=== PATIENT | male | born 1960 | race Caucasian/White ===

== ENCOUNTER 2017-10-05 07:21 | Outpatient (CLI) | payer BC ==
[~2017-10-05] VITALS: Ht 198.1 cm; Wt 140.9 kg
[2017-10-05] MEDS ORDERED: VASOTEC10 MG PO (08:09)
[2017-10-05] MEDS ORDERED: LEVOTHYROXINE200 MCG PO (08:09)
[2017-10-05] MEDS ORDERED: MAXZIDE 75/501 TAB PO (08:10)
[2017-10-05] MEDS ORDERED: VITAMIN D250000 UNIT PO (08:10)
[2017-10-05] MEDS ORDERED: FENOFIBRATE160 MG PO (08:11)
[2017-10-05] MEDS ORDERED: ZOLOFT100 MG PO (08:11)
[2017-10-05] MEDS ORDERED: NOVOLOG INJ FLE (08:11)
[2017-10-05] MEDS ORDERED: TOPROL XL50 MG PO (08:11)
[2017-10-05] MEDS ORDERED: TRESIBA FLEX INJ 200 (08:12)
[2017-10-05] MEDS ORDERED: CARDIZEM CD240 MG PO (08:12)
[2017-10-05] MEDS ORDERED: BAYER CHEWABLE81 MG PO (08:13)
[2017-10-05] MEDS ORDERED: ZANTAC150 MG PO (08:13)
[2017-10-05 08:14] VITALS: BP 150/89; BMI 35.7
[2017-10-05 08:38] LABS: BASOPHILS 0.3 % (0-2); EOSINOPHILS 1.4 % (0-7); HEMATOCRIT 37.9 % (42.0-54.0); HEMOGLOBIN 12.7 g/dL (13.5-17.5); IMMATURE GRANULOCYTES 0.3 % (0-5); LYMPHOCYTES 18.3 % (15-50); MCH 30.4 pg (26.0-34.0); MCHC 33.5 g/dL (31.0-37.0); MCV 90.7 fL (80.0-100.0); MEAN PLATELET VOLUME 11.2 fL (7.4-10.4); MONOCYTES 6.2 % (2-11); NEUTROPHILS 73.5 % (40-80); PLATELET COUNT 357 10x3/uL (130-400); RBC 4.18 10x6/uL (4.20-6.10); RDW 13.1 % (11.5-14.5); WBC 11.4 10x3/uL (4.8-10.8)
[2017-10-05 08:46] LABS: APTT 29.5 SECONDS (22.8-39.4); INR 1.15 (0.85-1.17); PROTIME 14.3 SECONDS (11.6-15.0)
[2017-10-05 09:00] LABS: ANION GAP 15.1 mmol/L (8-16); CALCIUM 9.2 mg/dL (8.5-10.1); CARBON DIOXIDE 25.6 mmol/L (21.0-32.0); CREATININE - SERUM 3.7 mg/dL (0.6-1.3); POTASSIUM - SERUM 3.7 mmol/L (3.5-5.1)
[2017-10-05 14:31] VITALS: BP 154/78; Ht 198.1 cm; Wt 140.9 kg
[2017-10-06 00:15] LABS: HEMATOCRIT 31.6 % (42.0-54.0); HEMOGLOBIN 10.9 g/dL (13.5-17.5); LYMPHOCYTES 21.9 % (15-50); MCH 29.9 pg (26.0-34.0); MCHC 34.5 g/dL (31.0-37.0); MEAN PLATELET VOLUME 10.1 fL (7.4-10.4); NEUTROPHILS 69.4 % (40-80); RBC 3.64 10x6/uL (4.20-6.10); RDW 12.8 % (11.5-14.5); WBC 9.3 10x3/uL (4.8-10.8)
[2017-10-06 00:16] LABS: MCV 86.8 fL (80.0-100.0); PLATELET COUNT 260 10x3/uL (130-400)
[2017-10-06 04:31] VITALS: BP 151/77
[2017-10-06 06:50] LABS: BASOPHILS 0.3 % (0-2); EOSINOPHILS 1.4 % (0-7); HEMATOCRIT 33.9 % (42.0-54.0); HEMOGLOBIN 11.5 g/dL (13.5-17.5); IMMATURE GRANULOCYTES 0.6 % (0-5); LYMPHOCYTES 20.6 % (15-50); MCH 30.4 pg (26.0-34.0); MCHC 33.9 g/dL (31.0-37.0); MCV 89.7 fL (80.0-100.0); MEAN PLATELET VOLUME 10.6 fL (7.4-10.4); MONOCYTES 8.7 % (2-11); NEUTROPHILS 68.4 % (40-80); PLATELET COUNT 270 10x3/uL (130-400); RBC 3.78 10x6/uL (4.20-6.10); RDW 13.1 % (11.5-14.5); WBC 8.6 10x3/uL (4.8-10.8)
[2017-10-06 07:03] LABS: CALCIUM 8.6 mg/dL (8.5-10.1); CARBON DIOXIDE 25.9 mmol/L (21.0-32.0); CREATININE - SERUM 3.7 mg/dL (0.6-1.3); POTASSIUM - SERUM 3.9 mmol/L (3.5-5.1)
[2017-10-06 07:56] VITALS: BP 159/84
[2017-10-06 12:02] VITALS: BP 165/90
[2017-10-06 12:13] LABS: BASOPHILS 0.2 % (0-2); EOSINOPHILS 1.3 % (0-7); HEMATOCRIT 34.2 % (42.0-54.0); HEMOGLOBIN 11.5 g/dL (13.5-17.5); IMMATURE GRANULOCYTES 0.5 % (0-5); LYMPHOCYTES 18.4 % (15-50); MCH 30.2 pg (26.0-34.0); MCHC 33.6 g/dL (31.0-37.0); MCV 89.8 fL (80.0-100.0); MEAN PLATELET VOLUME 10.6 fL (7.4-10.4); MONOCYTES 6.3 % (2-11); NEUTROPHILS 73.3 % (40-80); PLATELET COUNT 285 10x3/uL (130-400); RBC 3.81 10x6/uL (4.20-6.10); RDW 13.2 % (11.5-14.5); WBC 8.5 10x3/uL (4.8-10.8)
== END 2017-10-06 14:40 | disposition home or self-care (01) ==
LOC: D.OPS 07:21 → D.SP 10:00 → D.M2 14:03 → D.OPS 10-06 14:40
PROVIDERS: General Practice; Internal Medicine Nephrology
DX: E11.22 Type 2 diabetes mellitus with diabetic chronic kidney disease (principal); N18.3 Chronic kidney disease, stage 3 (moderate); E11.21 Type 2 diabetes mellitus with diabetic nephropathy; Q61.5 Medullary cystic kidney; Z01.812 Encounter for preprocedural laboratory examination

== ENCOUNTER 2018-02-02 10:13 | Inpatient (IN) | payer BC ==
[~2018-02-02] VITALS: Ht 198.1 cm; Wt 138.1 kg
--- NOTE | ~2018-02-02 | OP ---
PATIENT NAME: RYANN DUVALL MEDICAL RECORD: [id number] :62 LOCATION:D.M2 D.2111 ADMISSION DATE:02/02/18 SURGEON: HANDY PAZ MD DATE OF OPERATION: 02/06/2018 PREOPERATIVE DIAGNOSES: 1. Chronic kidney disease. 2. Diabetes mellitus. 3. Hypertension. 4. Anemia of chronic kidney disease. POSTOPERATIVE DIAGNOSES: 1. Chronic kidney disease. 2. Diabetes mellitus. 3. Hypertension. 4. Anemia of chronic kidney disease. PROCEDURE: 1. Laparoscopic peritoneal dialysis catheter placement. 2. Left Oj AV fistula placement. SURGEON: Handy Paz MD REPORT OF PROCEDURE: The patient's abdomen and left upper extremity were prepped and draped in sterile fashion. A Veress needle was inserted in the left upper quadrant and the abdomen was insufflated. A 5-mm Visiport trocar was then inserted in the left lateral abdomen. We could see the Veress needle and there was no sign of any injury to bowel or surrounding structures. Another 5-mm trocar was placed in the midline just above the umbilicus. The final 5-mm trocar was placed in the right lower quadrant. This extended from the skin towards the midline of the abdomen. We ran a grasper between the two lateral trocars until the tip end of the catheter was coming out through the skin in the right lower quadrant. The trocar was then removed and the pigtail end to the peritoneal dialysis catheter was grasped and pulled through the skin and placed down into the pelvis. Care was taken to make sure that the 2 subcutaneous sheaths were in good position. Once they were there, we irrigated out through the peritoneal dialysis catheter and it aspirated and flowed easily. We then sutured this into place with a 2-0 Prolene. The ports and insufflation were then removed. The subcutaneous tissues were closed with subcutaneous 5-0 Monocryl and dressed appropriately. We then approached the patient's left wrist. Using ultrasound guidance, we were able to map out the patient's left distal cephalic vein. It was widely open and patent. The patient had a good palpable pulse. A longitudinal incision was made overlying the radial artery. We dissected down around the radial artery and placed vessel loops around it proximally and distally. The patient's cephalic vein was then dissected free and once this was dissected free, it was transected distally. The patient was given 5000 units of heparin IV. The distal end of the cephalic vein was then tied off with a 3-0 silk tie. The cephalic vein was irrigated out with heparinized saline. We then made an arteriotomy on the radial artery and flushed proximally and distally. An end-to-side anastomosis was then performed using 7-0 Prolene. At the conclusion of this, there was a good palpable flow through the vessels with a good thrill. There was some leakage from the artery, which was treated with a single interrupted 7-0 Prolene. We inspected the vein one last time with ultrasound guidance and could see there were 2 branches that were coming in the forearm. Longitudinal incisions were made overlying these 2 OPERATIVE REPORT [id number] RYANN DUVALL branches and these were tied off after inlet using 3-0 silks. At this point, we irrigated out all the wounds and assured there was no sign of any active bleeding. Again at this point, we could feel a good palpable thrill present. The wounds were then closed with running subcutaneous 5-0 Monocryl and dressed appropriately. COMPLICATIONS: None. CONDITION: Stable. ANESTHESIA: General endotracheal. BLOOD LOSS: 50 mL. TRANSINT:[id number] Voice Confirmation ID: [id number] DOCUMENT ID: [id number] HANDY PAZ MD at 1052 CC: [id number] DICTATION DATE: 02/06/18 1415 DISTRICT GAUGER: 02/06/18 1436 DIS IN 02/07/18 [address] [place] [address]
[~2018-02-02 10:13] MED LIST: BAYER CHEWABLE81 MG PO; CARDIZEM CD240 MG PO; FENOFIBRATE160 MG PO; LEVOTHYROXINE200 MCG PO; MAXZIDE 75/501 TAB PO; NOVOLOG INJ FLE; TOPROL XL50 MG PO; TRESIBA FLEX INJ 200; VASOTEC10 MG PO; VITAMIN D250000 UNIT PO; ZANTAC150 MG PO; ZOLOFT100 MG PO
[2018-02-02 12:20] VITALS: BP 178/98; BMI 36.7
[2018-02-02 12:30] VITALS: BP 178/98
[2018-02-02] MEDS ORDERED: TRESIBA FL100 UNIT/1 SC (12:47)
[2018-02-02] MEDS ORDERED: NOVOLOG MIX 70/10 ML SQ (12:49)
[2018-02-02] MEDS ORDERED: NOVOLOG100 U/M1 SC (12:51)
[2018-02-02 14:59] LABS: CKMB 1.4 U/L (0.0-3.6); CREATINE KINASE 156 UL (21-232)
[2018-02-02 19:34] LABS: CKMB 1.6 U/L (0.0-3.6); CREATINE KINASE 172 UL (21-232); TROPONIN-I 0.032 ng/mL (0.000-0.060)
[2018-02-02 20:00] VITALS: BP 185/96
[2018-02-03 01:00] VITALS: BP 155/75
[2018-02-03 01:52] LABS: CKMB 1.2 U/L (0.0-3.6); CREATINE KINASE 157 UL (21-232)
[2018-02-03 05:11] VITALS: BP 155/76
[2018-02-03 06:11] LABS: BASOPHILS 0.3 % (0-2); EOSINOPHILS 2.1 % (0-7); HEMATOCRIT 32.7 % (42.0-54.0); HEMOGLOBIN 10.8 g/dL (13.5-17.5); IMMATURE GRANULOCYTES 0.3 % (0-5); LYMPHOCYTES 21.9 % (15-50); MCH 29.3 pg (26.0-34.0); MCV 88.9 fL (80.0-100.0); MEAN PLATELET VOLUME 10.3 fL (7.4-10.4); NEUTROPHILS 66.4 % (40-80); PLATELET COUNT 322 10x3/uL (130-400); RBC 3.68 10x6/uL (4.20-6.10); RDW 13.8 % (11.5-14.5); WBC 9.8 10x3/uL (4.8-10.8)
[2018-02-03 06:39] LABS: ANION GAP 15.2 mmol/L (8-16); CALCIUM 8.4 mg/dL (8.5-10.1); CREATININE - SERUM 6.7 mg/dL (0.6-1.3); POTASSIUM - SERUM 3.2 mmol/L (3.5-5.1)
[2018-02-03 08:16] VITALS: BP 155/87
[2018-02-03 11:46] LABS: HEPATITIS C ANTIBODY <0.1 (0.0-0.9)
[2018-02-03 11:56] VITALS: BP 161/86
[2018-02-03 12:38] VITALS: Ht 198.1 cm; Wt 138.1 kg
[2018-02-03 15:48] VITALS: BP 157/78
[2018-02-03 20:00] VITALS: BP 164/87
[2018-02-04 01:00] VITALS: BP 153/75
[2018-02-04 04:30] VITALS: BP 142/71
[2018-02-04 05:07] LABS: BASOPHILS 0.4 % (0-2); EOSINOPHILS 2.9 % (0-7); HEMATOCRIT 29.1 % (42.0-54.0); HEMOGLOBIN 9.6 g/dL (13.5-17.5); IMMATURE GRANULOCYTES 0.1 % (0-5); LYMPHOCYTES 28.3 % (15-50); MCH 29.6 pg (26.0-34.0); MCV 89.8 fL (80.0-100.0); MEAN PLATELET VOLUME 10.2 fL (7.4-10.4); NEUTROPHILS 60.3 % (40-80); PLATELET COUNT 261 10x3/uL (130-400); RBC 3.24 10x6/uL (4.20-6.10); RDW 13.8 % (11.5-14.5); WBC 7.7 10x3/uL (4.8-10.8)
[2018-02-04 05:09] LABS: ANION GAP 17.4 mmol/L (8-16); CALCIUM 7.8 mg/dL (8.5-10.1); CARBON DIOXIDE 21.1 mmol/L (21.0-32.0); CREATININE - SERUM 6.9 mg/dL (0.6-1.3); POTASSIUM - SERUM 3.5 mmol/L (3.5-5.1)
[2018-02-04 10:05] VITALS: BP 156/89
[2018-02-04 12:22] VITALS: BP 163/86
[2018-02-04 16:58] VITALS: BP 155/87
[2018-02-04 21:00] VITALS: BP 144/78
[2018-02-05 02:30] VITALS: BP 157/86
[2018-02-05 05:00] VITALS: BP 146/78
[2018-02-05 05:18] LABS: BASOPHILS 0.5 % (0-2); EOSINOPHILS 3.8 % (0-7); HEMOGLOBIN 9.4 g/dL (13.5-17.5); IMMATURE GRANULOCYTES 0.5 % (0-5); LYMPHOCYTES 27.1 % (15-50); MCH 29.3 pg (26.0-34.0); MCHC 32.4 g/dL (31.0-37.0); MCV 90.3 fL (80.0-100.0); MEAN PLATELET VOLUME 10.4 fL (7.4-10.4); MONOCYTES 9.7 % (2-11); NEUTROPHILS 58.4 % (40-80); PLATELET COUNT 261 10x3/uL (130-400); RBC 3.21 10x6/uL (4.20-6.10); RDW 13.6 % (11.5-14.5); WBC 8.8 10x3/uL (4.8-10.8)
[2018-02-05 05:21] LABS: ANION GAP 14.7 mmol/L (8-16); CALCIUM 7.5 mg/dL (8.5-10.1); CARBON DIOXIDE 24.8 mmol/L (21.0-32.0); CREATININE - SERUM 7.1 mg/dL (0.6-1.3); POTASSIUM - SERUM 3.5 mmol/L (3.5-5.1)
[2018-02-05 05:33] LABS: % SATURATION 17 % (15-55); IRON 34 ug/dl (35-150); TOTAL IRON BIND CAPACITY 199 ug/dl (260-445); UNSAT IRON BIND CAPACITY 165 ug/dl (150-375)
[2018-02-05 09:07] VITALS: BP 153/87
[2018-02-05 12:51] VITALS: BP 157/89
[2018-02-05 16:41] VITALS: BP 148/81
[2018-02-05 20:00] VITALS: BP 144/79
[2018-02-06] VITALS (12 sets, daily range): BP systolic 132–164; BP diastolic 69–94
[2018-02-06 04:39] LABS: BASOPHILS 0.4 % (0-2); EOSINOPHILS 2.3 % (0-7); HEMATOCRIT 29.3 % (42.0-54.0); HEMOGLOBIN 9.6 g/dL (13.5-17.5); IMMATURE GRANULOCYTES 0.1 % (0-5); LYMPHOCYTES 22.1 % (15-50); MCH 29.4 pg (26.0-34.0); MCHC 32.8 g/dL (31.0-37.0); MCV 89.6 fL (80.0-100.0); MEAN PLATELET VOLUME 10.1 fL (7.4-10.4); NEUTROPHILS 67.1 % (40-80); PLATELET COUNT 253 10x3/uL (130-400); RBC 3.27 10x6/uL (4.20-6.10); RDW 13.8 % (11.5-14.5); WBC 9.4 10x3/uL (4.8-10.8)
[2018-02-06 04:41] LABS: ANION GAP 16.7 mmol/L (8-16); CALCIUM 7.4 mg/dL (8.5-10.1); CARBON DIOXIDE 23.1 mmol/L (21.0-32.0); CREATININE - SERUM 7.2 mg/dL (0.6-1.3); POTASSIUM - SERUM 3.8 mmol/L (3.5-5.1)
[2018-02-07] VITALS: BP 168/95
[2018-02-07 04:00] VITALS: BP 141/76
[2018-02-07 06:08] LABS: BASOPHILS 0.3 % (0-2); EOSINOPHILS 1.4 % (0-7); HEMATOCRIT 28.5 % (42.0-54.0); HEMOGLOBIN 9.3 g/dL (13.5-17.5); IMMATURE GRANULOCYTES 0.3 % (0-5); LYMPHOCYTES 17.5 % (15-50); MCH 29.3 pg (26.0-34.0); MCHC 32.6 g/dL (31.0-37.0); MCV 89.9 fL (80.0-100.0); MEAN PLATELET VOLUME 10.2 fL (7.4-10.4); MONOCYTES 8.4 % (2-11); NEUTROPHILS 72.1 % (40-80); PLATELET COUNT 260 10x3/uL (130-400); RBC 3.17 10x6/uL (4.20-6.10); RDW 13.6 % (11.5-14.5); WBC 8.7 10x3/uL (4.8-10.8)
[2018-02-07 06:49] LABS: ANION GAP 18.8 mmol/L (8-16); CALCIUM 7.7 mg/dL (8.5-10.1); CREATININE - SERUM 7.2 mg/dL (0.6-1.3); POTASSIUM - SERUM 3.8 mmol/L (3.5-5.1)
[2018-02-07] MEDS ORDERED: LASIX20 MG PO (07:34)
[2018-02-07 07:43] VITALS: BP 121/67
== END 2018-02-07 12:09 | disposition home or self-care (01) | DRG 264 ==
LOC: D.M2 10:13 → D.ICU 11:09 → D.M2 11:09
PROVIDERS: Internal Medicine; Internal Medicine Nephrology; Surgery
PROC: 0WHG43Z Insertion of Infusion Device into Peritoneal Cavity, Percutaneous Endoscopic Approach (ICD-10-PCS; principal; 2018-02-06 12:00)
PROC: 031C0ZF Bypass Left Radial Artery to Lower Arm Vein, Open Approach (ICD-10-PCS; 2018-02-06 12:00)
DX: I13.2 Hypertensive heart and chronic kidney disease with heart failure and with stage 5 chronic kidney disease, or end stage renal disease (principal); N18.5 Chronic kidney disease, stage 5; N17.9 Acute kidney failure, unspecified; E11.22 Type 2 diabetes mellitus with diabetic chronic kidney disease; I50.9 Heart failure, unspecified; Z87.891 Personal history of nicotine dependence; E66.01 Morbid (severe) obesity due to excess calories; Z68.36 Body mass index [BMI] 36.0-36.9, adult; E11.21 Type 2 diabetes mellitus with diabetic nephropathy; D63.1 Anemia in chronic kidney disease

== ENCOUNTER 2018-12-07 22:05 | Inpatient (IN) | payer BC, MEDICAID ==
[~2018-12-07] VITALS: Ht 195.6 cm; Wt 119.5 kg
--- NOTE | ~2018-12-07 | HEMODYNAMI ---
PATIENT:RYANN DUVALL MEDICAL RECORD: [id number] : 62 [facility] AD[facility] DATE: 12/07/18 Generatedon:12/12/201816:59 Patient name: RYANN DUVALL Patient #: [id number] SSN: D OB: 1960 Date of study: 12/12/2018 Page: Of Hemodynamic Procedure Report Patient Data Patient Demographics Procedure consent was obtained First Name: RYANN Gender: Male Last Name: ELOINA : 1960 Patient #: [id number] Age: 58 year(s) Race: Unknown Additional ID: [id number] Contact details Address: [facility] State: [place] City: [place] Zip code: [address] Past Medical History Allergies: No known allergies Admission Admission Data Admission Date: 12/07/2018 Admission Time: 22:49 Room #: [facility] Height (in.): 77 BSA: 2.63 (m2) Height (cm.): 195.58 BMI: 34.74 (kg/m2) Weight (lbs.): 293 Weight (kg.): 132.9 Procedure Procedure Types Cath Procedure Peripheral Cath Diagnostic Procedure Wind Turbine Mechanical Engineer Peripheral Procedures Abd/Extremity Extremities Right Lower Ext Arterio Procedure Description Procedure Date Procedure Date: 12/12/2018 Procedure Start Time: 16:11 Procedure Staff Name Stephy Majano MD Performing Physician Sonya Fontenot RT Plane Tender Wilda Lemus RN Nurse Syed Granados RT Scrub Mark Pennington MD Additional personnel Procedure Data Cath Procedure Fluoroscopy Diagnostic fluoroscopy Total fluoroscopy Time: 9.3 time: 9.3 min min Diagnostic fluoroscopy Total fluoroscopy dose: 382 dose: 382 mGy mGy Contrast Material Contrast Material Type Amount (ml) Isovue 300 65 Entry Location Entry Primary Successful Side Size Upsize Upsize Entry Closure Succes sful Closure Location (Fr) 1 (Fr) 2 (Fr) Remarks Device Remarks Femoral Left Exoseal artery Diagnostic catheters Device Type Used For End Catheter Placement [employer] Cobra 2 4Fr 65CM catheter ([id number]) Procedure Medications Medication Administration Route Dosage Heparin Flush Bag added to field 3 bags (1000units/500ml NS) Lidocaine 1% added to field 20 Hemodynamics Rest BSA: 2.63 (m2) O2 Consumption: Estimated: 357.68 (ml/min) O2 Consumption indexed : Estimated:136 (ml/min/m) Pre Cath Intra NCS Post Cath Medications Time Medication Route Dose Verified Delivered Reason Notes Effe ctiveness by by 15:37:30 Heparin Flush added 3 M J Long M J Long used for Bag to bags MD DELACRUZ procedure (1000units/500ml field NS) 15:37:41 Lidocaine 1% added 20ml M J Long M J Long for local to vial MD DELACRUZ anesthetic field Procedure Log Time Note 9:04:12 Patient Height : 77 inches 9:04:18 Patient Weight : 293 lbs 14:43:19 Use device set IR Diagnostic 14:44:33 DOC .035 wire (Y55755) opened to sterile field. 14:44:34 Micropuncture VSI 4FR kit opened to sterile field. 14:44:35 SHEATH 5FR [place] (TQB003) opened to sterile field. 14:44:36 TUBING Contrast Injection High Pressure (SXH176D) opened to sterile field. 14:44:37 Tegaderm 4 x 4 (1626W) opened to sterile field. 14:44:38 Sterile Angiographic Pack opened to sterile field. 14:44:39 Bag Decanter () opened to sterile field. 14:44:40 ACIST Manifold (22606) opened to sterile field. 14:44:41 ACIST Hand Control (16960) opened to sterile field. 14:44:42 ACIST Syringe (94092) opened to sterile field. 14:44:52 - 15:06:16 Time tracking: Regular hours (M-F 7:00 - 5:00) 15:06:25 Plan of Care:Hemodynamics will remain stable., Cardiac rhythm will remain stable., Comfort level will be maintained., Respiratory function will remain adequate., Patient/ family verbilizes understanding of procedure., Procedure tolerated without complication., Recovers from procedure without complications.. 15:06:34 Patient received from ICU to IR Alert and oriented. Tansferred to table in Supine position. 15:06:49 Signed procedure consent form obtained from patient. 15:06:54 Correct patient and procedure confirmed by team. 15:06:55 Warm blankets applied, and isadora hugger turned on for patient comfort. 15:07:03 H&P Date Dictated: 12/12/2018 Within 30 days and on chart.. 15:07:06 Pre-procedure instructions explained to patient. 15:07:07 Pre-op teaching completed and patient verbalized understanding. 15:07:10 Family in waiting room. 15:07:13 Patient NPO since Midnight. 15:07:23 Patient allergic to No known allergies 15:07:27 Is the patient allergic to Iodine/contrast media? No. 15:07:39 Is patient on blood thinner?Yes 15:07:56 ----Pre-sedation anethsthesia assessment.----see anesthesia notes for monitoring of patient during procedure 15:08:32 - 15:08:48 Pre procedure: right dorsailis pedis pulse Doppler 15:08:57 Pre procedure: left dorsailis pedis pulse Doppler 15:09:02 Pre procedure: right posterior tibial pulse 0-Absent 15:09:07 Pre procedure: left posterior tibial pulse 0-Absent 15:09:40 - 15:09:53 Left groin area was prepped with chlora-prep and draped in sterile fashion 15:10:13 ALEXANDER 260 wire (I07774) opened to sterile field. 15:37:30 Heparin Flush Bag (1000units/500ml NS) 3 bags added to field was administered by Kain Majano MD; used for procedure; 15:37:41 Lidocaine 1% 20ml vial added to field was administered by Kain Majano MD; for local anesthetic; 15:59:00 SHEATH 6FR Destination (RSR01) opened to sterile field. 15:59:04 Angiodynamics Omniflush 5Fr 65cm ([id number]) opened to sterile field. 16:10:18 Physician arrived 16::19 --------ALL STOP TIME OUT------ 16:10:21 Final Timeout: patient, procedure, and site verified with staff and physician. All members of the team are in agreement. 16:11:03 Procedure started. 16:11:04 Full Disclosure recording started 16:11:55 Local anesthetic to left femerol artery with Lidocaine 1% by Kain Majano MD.INITIAL ACCESS ONLY 16:11:58 Arterial access obtained using ultrasound guidance. 16:20:12 A Cook Cobra 2 4Fr 65CM catheter (J40233) was advanced over the wire an d used for . 16:22:23 GLIDE WIRE ANGLE 260cm (QQ5179) opened to sterile field. 16:22:40 CHOICE PT Extra Support 182cm wire ([id number]) opened to sterile field. 16:27:53 INFLATOR BasixTOUCH (TZ4350) opened to sterile field. 16:27:54 CXI Catheter 90cm (R02756) opened to sterile field. 16:28:08 Hawkone Medium Atherectomy System (H1-M) opened to sterile field. 16:38:54 Inflate balloon Inflation number: 1 A IN.PACT Admiral 5 x 150 x 130 DCB balloon ([id number]) was prepped and advanced across the Undefined1, then inflated. 16:47:50 SHEATH 6FR [place] (NHH659) opened to sterile field. 16:47:59 EXOSEAL 6Fr (EX600) opened to sterile field. 16:54:09 A sheath was inserted into the Left Femoral artery 16:54:09 Sheath removed intact; hemostasis achieved with Exoseal to the Left Femoral artery. 16:54:12 Procedure ended.(Physican Out) 16:54:28 Fluoroscopy time 09.30 minutes. 16:54:53 Fluoroscopy dose: 382 mGy 16:54:53 Flurop Dose total: 382 16:54:59 Contrast amount:Isovue 300 65ml. 16:57:53 Procedure and supply charges have been captured, reviewed, submitted an d are correct. 16:57:56 Post Procedure Pulses reassessed and unchanged 16:58:55 Report given to PCU. Intervention Summary Intervention Notes Time ActionType Lesion and Equipment Used Action# Pressure Duration Attributes 16:38:54 Inflate Undefined1 IN.PACT 1 0 00:00 balloon Admiral 5 x 150 x 130 DCB balloon ([id number]) Device Usage Item Name Manufacture Quantity Catalog Number Hospital Part Current Minimal Lot# / Charge Number Stock Stock Serial# Code DOC .035 wire Cook Medical 1 [id number] [id number] 188916 5 (H94130) Micropuncture VSI VASCULAR 1 7266V 121865 068727 5 VSI 4FR kit SOLUTIONS SHEATH 5FR Terumo 1 HYP604 397367 408979 633734 5 [place] (SCR235) TUBING [facility] Medical 1 MIY329F 245634 309137 852327 5 Contrast Injection High Pressure (YNA549S) Tegaderm 4 x 4 3M 1 1626W 978619 775275 876548 5 (1626W) Sterile Cardinal 1 [id number] 937406 011253 5 Angiographic Health Pack Bag Decanter Microtek 1 2001S 549800 79295 488577 5 (2001S) Medical Inc. ACIST Manifold Acist Medical 1 27899 483284 793775 020775 5 (56355) Systems Inc ACIST Hand Acist Medical 1 96187 667251 384068 141616 5 Control Systems Inc (61804) ACIST Syringe Acist Medical 1 00128 769834 428258 018261 20 (92075) Systems Inc ALEXANDER 260 wire Cook Medical 1 G49408 243308 93032 196318 5 (X94702) SHEATH 6FR Terumo 1 RSR01 305140 89142 383010 5 Destination (RSR01) Angiodynamics Angiodynamics 1 45328147 205606 511326 414352 5 Omniflush 5Fr 65cm (77086698) Cook Cobra 2 Cook Medical 1 H12307 482458 529830 5 4Fr 65CM catheter (S03761) GLIDE WIRE Terumo 1 MU2972 194396 687846 953235 5 ANGLE 260cm (LH5700) CHOICE PT [place] 1 [id number] 294773 292242 468111 5 Extra Support Scientific 182cm wire ([id number]) INFLATOR [facility] 1 BY8685 695118 539229 883662 5 BasixTOUCH (KX3430) CXI Catheter Cook Medical 1 T06049 835993 508260 051079 5 1656496 90cm (K34912) Hawkone Medium Medtronic 1 H1-M 039045 43332418 5 [id number] Atherectomy System (H1-M) IN.PACT Medtronic 1 [id number] 135105 0903501 979777 5 [id number] Admiral 5 x 150 x 130 DCB balloon ([id number]) SHEATH 6FR Terumo 1 MOZ364 264598 318497 994486 40 [place] (UHV119) EXOSEAL 6Fr Cardinal 1 EX600 347270 087178 577670 10 [id number] (EX600) Health Signature Audit [place] Stage Time Signature Unsigned Intra-Procedure 12/12/2018 Sonya Fontenot 4:59:17 PM RT(R) [id number] [place] [address]
[~2018-12-07 22:05] MED LIST changes: +LASIX20 MG PO; +NOVOLOG MIX 70/10 ML SQ; +NOVOLOG100 U/M1 SC; +TRESIBA FL100 UNIT/1 SC
[2018-12-07] MEDS ORDERED: TOPROL XL100 MG PO (22:11)
[2018-12-07] MEDS ORDERED: VASOTEC10 MG PO (22:11)
[2018-12-07] MEDS ORDERED: TRESIBA FL100 UNIT/1 SC (22:11)
[2018-12-07] MEDS ORDERED: TIAZAC/CARDIZE240 M1 PO (22:12)
[2018-12-07] MEDS ORDERED: BAYER CHEWABLE81 MG PO (22:12)
[2018-12-07] MEDS ORDERED: ZANTAC300 MG PO (22:13)
[2018-12-07] MEDS ORDERED: SYNTHROID200 MC1 PO (22:13)
[2018-12-07] MEDS ORDERED: ZOLOFT100 MG PO (22:13)
[2018-12-07] MEDS ORDERED: NOVOLOG100 UNIT/1 SC (22:13)
[2018-12-07 22:27] LABS: APPEARANCE CLOUDY (CLEAR); BACTERIA NONE SEEN /hpf (NONE SEEN); BILIRUBIN NEGATIVE (NEGATIVE); COLOR YELLOW (YELLOW); EPITHELIAL CELLS RARE /hpf (0-5); GLUCOSE 500 mg/dL (NEGATIVE); KETONE NEGATIVE (NEGATIVE); NITRITE NEGATIVE (NEGATIVE); PROTEIN 2+ mg/dL (NEGATIVE); RED CELLS - URINE NONE SEEN /hpf (0-5); SPECIFIC GRAVITY 1.015 (1.005-1.020); UROBILINOGEN NORMAL (NORMAL); WHITE CELLS - URINE 0-5 /hpf (0-5)
[2018-12-07 22:28] LABS: AMORPHOUS SEDIMENT >1+ /lpf (NONE SEEN)
[2018-12-07 22:42] LABS: HEMATOCRIT 23.7 % (42.0-54.0); HEMOGLOBIN 7.3 g/dL (13.5-17.5); MCH 27.1 pg (26.0-34.0); MCHC 30.8 g/dL (31.0-37.0); MCV 88.1 fL (80.0-100.0); MEAN PLATELET VOLUME 9.8 fL (7.4-10.4); PLATELET COUNT 318 10x3/uL (130-400); RBC 2.69 10x6/uL (4.20-6.10); RDW 17.7 % (11.5-14.5); WBC 27.7 10x3/uL (4.8-10.8)
--- NOTE | 2018-12-07 22:44 | NUR ---
CRITICAL LAB: H&H 7.3 AND 23. NOTIFIED EDP CAROLYNN VERBAL ORDER RECEIVED FOR A TYPE AND SCREEN
[2018-12-07 23:19] LABS: LYMPHOCYTES 5 % (15-50); MONOCYTES 3 % (2-11); NEUTROPHILS 92 % (40-80)
[2018-12-07 23:20] LABS: PLATELET ESTIMATE NORMAL
[2018-12-07 23:21] LABS: ALBUMIN 1.4 g/dL (3.4-5.0); ALKALINE PHOSPHATASE 83 U/L (46-116); ALT (SGPT) 7 U/L (10-68); BILIRUBIN - TOTAL 0.59 mg/dL (0.2-1.3); CALC OSMOLALITY 293 mosm/kg (275-300); CARBON DIOXIDE 20.2 mmol/L (21.0-32.0); CHLORIDE - SERUM 95 mmol/L (98-107); CKMB 1.4 U/L (0.0-3.6); CREATINE KINASE 175 UL (21-232); CREATININE - SERUM 9.5 mg/dL (0.6-1.3); GLUCOSE 247 mg/dL (74-106); POTASSIUM - SERUM 3.6 mmol/L (3.5-5.1); PROTEIN - SERUM 5.9 g/dL (6.4-8.2); SODIUM 133 mmol/L (136-145); TROPONIN-I < 0.017 ng/mL (0.000-0.060); UREA NITROGEN 69 mg/dL (7-18); eGFR NON AFRICAN AMERICAN 6 mL/min (90-120)
[2018-12-07 23:28] LABS: CALCIUM 6.5 mg/dL (8.5-10.1); PRO BNP 76439 pg/mL (0-125)
[2018-12-07 23:40] VITALS: BP 90/63
[2018-12-07 23:45] VITALS: BP 109/57
[2018-12-08] VITALS (37 sets, daily range): BP systolic 90–130; BP diastolic 55–75; Ht 195.6 cm; Wt 119.5 kg
[2018-12-08] MEDS ORDERED: BUPROPION HCL75 MG
--- NOTE | 2018-12-08 02:34 | NUR ---
PT RECEIVED TO UNIT FROM ED VIA STRETCHER WITH 2 ED STAFF AT 2345. PT TRANSFERRED TO ICU BED, PT TOLERATED WELL. PT CONNECTED TO MONITOR. RESPIRATIONS >20 ON 2LN/C. OTHER VSS. WYLIE CATHETER PRESENT WITH SCANT AMOUT OF URINE NOTED. PT WITH PERITONEAL DIALYSIS CATHETER PRESENT. DR GORAN BAKER AND HE RETURNED PAGE, INFORMED OF CONSULT REPORTED LABS AND WOUNDS. ORDERED 1 UNIT PRBC. NEW IV PLACED TO RIGHT HAND AND PRBC STARTED. LEVOPHED TITRATED DOWN TO 5MCG/MIN. IN ROOM. WOUND CONSULT ALSO ORDERED. NO OTHER ORDERS RECEIVED AT THIS TIME. ASSESSMENT COMPLETED, SEE FLOW SHEET. HISTORY AND MEDICATION REC COMPLETED BY ANOTHER NURSE. WILL CONTINUE TO OBSERVE.
--- NOTE | 2018-12-08 03:15 | NUR ---
PT CONTINUES BLOOD TRANSFUSION AND TOLERATING WELL. LEVOPHED STOPPED, SEE IV FLOW SHEET. PT RESTING WITH EYES CLOSED AND CHEST RISING. CONTINUE N/C AT 2LPM. WILL CONTINUE TO OBSERVE.
--- NOTE | 2018-12-08 06:48 | NUR ---
ZOSYN STARTED TO RIGHT WRIST. PERFERRED PHAMACY ENTERED TO MED REC. NO S/S OF DISTRESS NOTED.
[2018-12-08 07:18] LABS: HEMATOCRIT 24.6 % (42.0-54.0); HEMOGLOBIN 7.6 g/dL (13.5-17.5); MCHC 30.9 g/dL (31.0-37.0); MCV 87.5 fL (80.0-100.0); PLATELET COUNT 335 10x3/uL (130-400); RBC 2.81 10x6/uL (4.20-6.10); RDW 17.2 % (11.5-14.5); WBC 27.3 10x3/uL (4.8-10.8)
[2018-12-08 07:51] LABS: ALBUMIN 1.2 g/dL (3.4-5.0); ANION GAP 22.5 mmol/L (8-16); BILIRUBIN - TOTAL 0.78 mg/dL (0.2-1.3); CARBON DIOXIDE 19.3 mmol/L (21.0-32.0); CREATININE - SERUM 9.2 mg/dL (0.6-1.3); POTASSIUM - SERUM 3.8 mmol/L (3.5-5.1); PROTEIN - SERUM 5.7 g/dL (6.4-8.2)
[2018-12-08 08:02] LABS: CALCIUM 6.5 mg/dL (8.5-10.1)
[2018-12-08 08:37] LABS: LYMPHOCYTES 2 % (15-50); MONOCYTES 3 % (2-11); NEUTROPHILS 84 % (40-80); PLATELET ESTIMATE NORMAL
--- NOTE | 2018-12-08 12:12 | NUR ---
Pt admitted to ICU last evening with multiple wounds. Bilateral lower extremities are red and edematous and covered with crusty peeling skin, scabs and open draining odorous wounds. Pt is diabetic and has a black necrotic wound on right plantar measuring 2cm x 2cm x 2cm x 3.5cm from 12-12 oclock. Another black area is noted on plantar aspect of great toe. This wound has a foul odor and has stringy black tissue covering it. There is a macerated area? on medial aspect of right foot that is not an open wound. Right lateral tapia has numerous black scabbed areas and peeling skin. The entire area measures approximately 15cm x 10cm. Right calf has open weeping pink area measuring 5cm x 5cm. Left lower tapia has 10cm x 9cm open wound with crusty dry edges. The wound bed is pale pink. Above this is an open area measuring 4cm x 4cm. Recommendations: -Surgical consult -Keep legs clean and place pads underneath for weeping/drainage - changing as necessary Wound care will continue to follow.
--- NOTE | 2018-12-08 20:58 | MORECARE ---
CASE MANAGEMENT DISCHARGE SUMMARY PATIENT: RYANN DUVALL UNIT: [id number] ADM DATE: 12/07/18 AGE: 58 : 62 SEX: M ROOM/BED: D.2314 AUTHOR: JACY ZHANG PHYSICIAN: REFERRING PHYSICIAN: CHASITY ZIMMER MD DATE OF SERVICE: 12/08/18 Discharge Plan Patient Name: RYANN DUVALL [facility] [facility] 1960 Planned Disposition: Home Anticipated Discharge Date: Discharge Date: Expected LOS: Initial Reviewer: [email or web address] Initial Review Date: 12/08/2018 Generated: 12/08/18 9:58 pm Patient Name: RYANN DUVALL Page 63874 at 2057 All edits/amendments must be made on the electronic document DICTATION DATE: 12/08/182056 BARREL STRAIGHTENER: NOEL 12/08/182056 RPT#: [id number] DC DATE: STATUS: ADM IN [facility] [address] [place] [address] END OF REPORT
--- NOTE | 2018-12-08 21:04 | MORECARE ---
CASE MANAGEMENT DISCHARGE SUMMARY PATIENT: RYANN DUVALL UNIT: [id number] ADM DATE: 12/07/18 AGE: 58 : 62 SEX: M ROOM/BED: D.2314 AUTHOR: LEATHA,DOC PHYSICIAN: REFERRING PHYSICIAN: CHASITY ZIMMER MD DATE OF SERVICE: 12/08/18 Discharge Plan Patient Name: RYANN DUVALL [facility]:[place] : 1960 Planned Disposition: Home Anticipated Discharge Date: Discharge Date: Expected LOS: Initial Reviewer: [email or web address] Initial Review Date: 12/08/2018 Generated: 12/08/18 10:04 pm Comments DCP- Discharge Planning Updated by [email or web address]: Dorcas Maki on 12/08/18 8:[address] Patient Name: RYANN DUVALL Admission Status: ER Accout number: [id number] Admission Date: 12-07-2018 : 1960 Admission Diagnosis:SEPSIS, UNSPECIFIED ORGANISM Attending: CHASITY ZIMMER Current LOS: 1 Anticipated DC Date: Planned Disposition: Home Primary Insurance: [employer] TRUE BLUE PPO Discharge Planning Comments: CM met with patient at bedside after obtaining verbal consent. Patient states he plans on returning home after discharge with his . Patient states he will have family transport him home via private vehicle. Patient denies any discharge needs at this time. Patient may need for wound care or possibly rehab upon discharge. CM will continue to follow and assist as needed for discharge planning / needs. Lead Qa Analyst: Dorcas Maki DCPIA - Discharge Planning Initial Assessment Updated by [email or web address]: Dorcas Maki on 12/08/18 8:59 pm * Is the patient Alert and Oriented? Yes * How many steps to enter\exit or inside your home? * PCP Tejinder Bernal * Pharmacy [facility] * Preadmission Environment Home with Family * ADLs Independent * Other Equipment walker, cane, CPAP-doesn't use, PD cycler * List name and contact numbers for known caregivers / representatives who currently or will assist patient after discharge: Henri Duvall - - [phone], * Verbal permission to speak to the caregivers and representatives has been obtained from the patient. Yes * Community resources currently utilized None * Please name any agencies selected above. Home PD * Additional services required to return to the preadmission environment? No * Can the patient safely return to the preadmission environment? Yes * Has this patient been hospitalized within the prior 30 days at any hospital? No Last DP export: 12/08/18 7:58 pm Patient Name: RYANN DUVALL Page 16207 at 2104 All edits/amendments must be made on the electronic document DICTATION DATE: 12/08/182103 PORT STEWARD: NOEL 12/08/182103 RPT#: [id number] DC DATE: STATUS: ADM IN [facility] [address] [place] [address] END OF REPORT
[2018-12-09] VITALS (26 sets, daily range): BP systolic 87–114; BP diastolic 49–82
--- NOTE | 2018-12-09 07:00 | NUR ---
RECIEVED BEDSIDE REPORT ON PATIENT AND ASSUMED CARE. PATIENT ALERT AND ORIENTED X 4, VSS. HR - 123 ON CM, ST, RR - 18 NON-LABORED, ON 2 LPM VIA NC. IV INFUSING TO RIGHT WRIST 20 GA WITH NO S/S OF INFILTRATION, AMIODARONE AT 16.7 CC/HR (0.5 MG/HR). IV 20 IV TO LEFT FA, NSL. HEAD TO TOE ASSESSMENT COMPLETED.
--- NOTE | 2018-12-09 08:42 | NUR ---
PATIENT GIVEN A COMPLETE BATH AND LINEN CHANGE. TURNED AND REPOSITIONED IN BED. VSS.
--- NOTE | 2018-12-09 09:10 | NUR ---
PERTINONEAL DIAYLSIS STARTED AT 909, DRAIN COMPLETE AT 921, FILL STARTED AT 922, COMPLETE AT 926. TOTAL WEIGHT OF BAG 2200. TOLERATED WELL VSS. RESPOSITIONED IN BED. MEDS GIVEN PER DEC.
[2018-12-09 11:17] LABS: ANION GAP 19.3 mmol/L (8-16); CARBON DIOXIDE 23.8 mmol/L (21.0-32.0); CREATININE - SERUM 8.6 mg/dL (0.6-1.3); POTASSIUM - SERUM 4.1 mmol/L (3.5-5.1); VANCOMYCIN - RANDOM 18.7 ug/mL (10.0-20.0)
[2018-12-09 11:19] LABS: CALCIUM 6.6 mg/dL (8.5-10.1)
--- NOTE | 2018-12-09 11:24 | NUR ---
PATIENT REASSESSMENT COMPLETED, RESTING QUIETLY WATCHING TV. VSS. FSBS 360 GIVEN 16 UNITS OF HUMALOG PER ORDER.
--- NOTE | 2018-12-09 11:42 | NUR ---
PATIENT INCONTINENT SMALL BROWN BM, CLEANED AND REPOSTIONED IN BED. VSS.
[2018-12-09 12:15] LABS: WBC 25.7 10x3/uL (4.8-10.8)
[2018-12-09 12:16] LABS: BASOPHILS 0.1 % (0-2); EOSINOPHILS 0.1 % (0-7); HEMATOCRIT 28.5 % (42.0-54.0); HEMOGLOBIN 8.9 g/dL (13.5-17.5); IMMATURE GRANULOCYTES 0.7 % (0-5); MCH 27.1 pg (26.0-34.0); MCHC 31.2 g/dL (31.0-37.0); MCV 86.6 fL (80.0-100.0); MONOCYTES 6.3 % (2-11); NEUTROPHILS 89.8 % (40-80); PLATELET COUNT 350 10x3/uL (130-400); RBC 3.29 10x6/uL (4.20-6.10); RDW 17.7 % (11.5-14.5)
--- NOTE | 2018-12-09 12:18 | NUR ---
PATIENT REPOSITIONED IN BED, GIVEN LUNCH TRAY. VSS.
--- NOTE | 2018-12-09 13:13 | NUR ---
PERITONEAL DIALYSIS STARTED AT 1310, DRAIN COMPLETED AT 1350. FLUSH STARTED AT 1352 AND COMPLETED AT 1410. TOTAL OUT 2500.
--- NOTE | 2018-12-09 15:07 | NUR ---
REASSESSMENT COMPLETE, PATIENT TURNED AND RESPOSITIONED IN BED. VSS. MEDS GIVEN PER MAR. WILL CONTINUE TO MONITOR.
--- NOTE | 2018-12-09 16:57 | NUR ---
PATIENT RESPOSITIONED IN BED AND GIVEN DINNER TRAY. VSS. FAMILY AT BEDSIDE.
--- NOTE | 2018-12-09 18:00 | NUR ---
PERTINOEAL DIALYSIS DRAIN STARTED AT 1717 AND COMPLETE AT 1751. FLUSH STARTED AT 1751 AND COMPLTED AT 1805. WITH 1999 IN AND 1999 OUT. CLEAN PADS PLACED UNDER PATIENT AND REPOSITIONED IN BED.
[2018-12-10] VITALS (24 sets, daily range): BP systolic 85–137; BP diastolic 59–91
[2018-12-10 08:02] LABS: ANION GAP 20.3 mmol/L (8-16); CALCIUM 7.2 mg/dL (8.5-10.1); CARBON DIOXIDE 22.2 mmol/L (21.0-32.0); POTASSIUM - SERUM 3.5 mmol/L (3.5-5.1)
--- NOTE | 2018-12-10 09:41 | NUR ---
ORAL TEMP 96.0 AND AX TEMP 95.8. BEAR HUGGAR PLAced on med. BREAKFAST TRAY SERVED. FAMILY AT BS. PD SOLUTION DRAINING AT PRESENT.
--- NOTE | 2018-12-10 10:47 | NUR ---
PT INC OF STOOL. BATHED AND LINENS CHANGED.
--- NOTE | 2018-12-10 18:17 | NUR ---
1530- PD BAG #13 INDWELLING. SEE PD SHEET. ASSISTED PT WITH REPOSITIONING AND TURNING.
--- NOTE | 2018-12-10 19:00 | NUR ---
Shift assessment complete. Pt is A&O x4 and complains of being uncomfortable. Repositioned for comfort. PERRLA, 3 mm, brisk reaction to light. S1S2 audible, HR 127 sinus tach showing on monitor. RR shallow, clear lung sounds heard bilat in upper and middle lobes, diminished at the bases. NC on with 2 L/min of O2. ABD soft, PD cath seen and capped. Sommers cath intact draining a scant amount of raquel urine. Radial pulses palp. R wrist PIV infusing Amiodarone gtt @ 0.5 mg/hr. R FA PIV saline loc'd + ABX when needed. B/L lower ext +2 pitting edema. There are multiple open wounds leaking purlulent drainage. 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 There are several spots on both lower ext that are black. MD is aware and rounded on pt today. There is a foul odor as well. Doppler used, R pulse much stronger than left pulse. Complete linen change provided. Stage IV pressure noted on coccyx, no drainage at this time. Fistual L wrist, buit and thrill present. L arm reserve signs posted on door and at HOB. Contact precaution sign posted on door and followed. Tight parameters set on ICU monitors. Call light in reach, bed in lowest position. He denies any further needs.
--- NOTE | 2018-12-10 19:05 | NUR ---
HR REG [address] CHAVEZ SR ACCOUNT EXECUTIVE FOR CARDIOLOGY THROUGH ANSWERING SERVICE. REC'D CALL BACK, REC'D NEW ORDERS.
--- NOTE | 2018-12-10 19:40 | NUR ---
Recieved new orders from AM nurse per Dr. Brennan. Orders for 150 mg bolus of Amiodarone and to increase Amio gtt to 1 mg/hr after bolus for 6 hrs, then decrease gtt back to 0.5 mg/hr set rate. Bolus infusing now.
--- NOTE | 2018-12-10 20:00 | NUR ---
Bolus complete. Amio gtt increased to 1 mg/hr.
--- NOTE | 2018-12-10 21:00 | NUR ---
Family at bedside. Updated given. Repositioned for comfort. All questions answered. VSS. Will cont with POC. Call light in reach.
--- NOTE | 2018-12-10 23:00 | NUR ---
Reassessment complete. Pt stated that he was hot and uncomfortable. Fan put in room, repositioned for comfort. No changes from previous assessment. Doppler used for pedal pulses, Left pedal pulse much weaker than right. Changed pads under legs. See flowsheet for further details. VSS. Will cont with POC.
--- NOTE | 2018-12-10 23:30 | NUR ---
PD started. See PD record, retimed PD in eMAR d/t his previous PD starting to [facility] at 1930 and needs to dwell for 4 hours per orders.
[2018-12-11] VITALS (24 sets, daily range): BP systolic 88–111; BP diastolic 56–98
--- NOTE | 2018-12-11 01:00 | NUR ---
Pt resting, no signs of acute distress noted. VSS. Call light in reach.
--- NOTE | 2018-12-11 02:00 | NUR ---
Amio gtt decreased to 0.5 mg/hr per orders.
--- NOTE | 2018-12-11 03:00 | NUR ---
Reassessment complete. Airoverlay mattress placed on bed, zeroed bed, weight is reading 289# on bedscale. Pt tolerated well. D/C'd lam cath. Pt has not made any urine for several hours and he states that he is anuric. Repositioned for comfort. Pt denies any needs at this time. Will cont with POC.
--- NOTE | 2018-12-11 05:00 | NUR ---
REPOSITIONED FOR COMFORT. PT RESTING PEACEFULLY. VSS. WILL CONT WITH POC. NEXT PD IS SCHEDULED FOR 0845 PER PD RECORD. WILL NOTIFY PHARM TO RETIME.
[2018-12-11 05:25] LABS: HEMATOCRIT 28.7 % (42.0-54.0); MCH 27.4 pg (26.0-34.0); MCHC 31.4 g/dL (31.0-37.0); MCV 87.5 fL (80.0-100.0); MEAN PLATELET VOLUME 10.3 fL (7.4-10.4); PLATELET COUNT 376 10x3/uL (130-400); RBC 3.28 10x6/uL (4.20-6.10); RDW 17.8 % (11.5-14.5); WBC 20.1 10x3/uL (4.8-10.8)
[2018-12-11 05:27] LABS: ANION GAP 23.5 mmol/L (8-16); CARBON DIOXIDE 23.1 mmol/L (21.0-32.0); CREATININE - SERUM 7.5 mg/dL (0.6-1.3); POTASSIUM - SERUM 3.6 mmol/L (3.5-5.1); VANCOMYCIN - RANDOM 20.4 ug/mL (10.0-20.0)
[2018-12-11 05:31] LABS: EOSINOPHILS 1 % (0-7); LYMPHOCYTES 6 % (15-50); MONOCYTES 7 % (2-11); NEUTROPHILS 84 % (40-80); PLATELET ESTIMATE NORMAL; TOXIC GRANULATION 1+
[2018-12-11 05:33] LABS: CALCIUM 6.9 mg/dL (8.5-10.1)
--- NOTE | 2018-12-11 07:34 | NUR ---
RANDOM VANCOMYCIN LEVEL STILL >20 WILL CONTINUE TO HOLD DOSES, AND RECHECK RANDOM LEVEL IN AM
--- NOTE | 2018-12-11 08:54 | NUR ---
DR CESPEDES HERE. EKG COMPLETED AND PT TO CT FOR CTA BLE. PT MAXIME POORLY BUT WAS ABLE TO COMPLETE SCAN. PROPED UP WITH WEDGES IN CT ROOM FOR SOB. AT BS.
--- NOTE | 2018-12-11 10:11 | NUR ---
NUTRITION F/U CHART REVIEWED. PT REMAINS IN ISOLATION. REPORTS DRINKING SOME NEPRO, GOOD INTAKE BREAKFAST. WILL CONTINUE TO PROVIDE DIET, NEPRO. RD FOLLOWING
--- NOTE | 2018-12-11 11:43 | NUR ---
PD SOLUTION CHANGED TO 4.25%. PD SOLUTION INDWELLING.
--- NOTE | 2018-12-11 13:32 | NUR ---
PT INC OF STOOL. BATHED AND LINENS CHANGED. 1U PRBC STARTED ORDERED. PD SOLUTION INDWELLING.
--- NOTE | 2018-12-11 18:28 | NUR ---
PT INC OF STOOL. BATH AND LINENS CHANGED.
--- NOTE | 2018-12-11 19:35 | NUR ---
PT RECEIVED WITH EYES OPEN WATCHING TV. PERITONEAL DIALYSIS ON GOING FLUID INFUSED AND WAITING TO BE REMOVED. NO COMPLAINTS OF PAIN. HR TACHYCARDIC 100-113. OTHER VITAL SIGNS STABLE. NO NEEDS OR CONCERNS NOTED. CALL LIGHT IN REACH. WILL CONTINUE TO OBSERVE.
--- NOTE | 2018-12-11 21:55 | NUR ---
PT DIALYSIS FLUIDS DRAINED AND WEIGHED 27OO NOTED. NEW FLUID INFUSED AND DISCONNECTED FROM INFUSION SET. DRAINED FLUID YELLOW IN COLOR AND EMPTIED. PT TOLERATED WELL. CALL LIGHT IN REACH. WILL CONTINUE TO OBSERVE.
--- NOTE | 2018-12-11 23:49 | NUR ---
REASSESSMENT COMPLETE, SEE FLOW SHEET. HR SOUNDING FREQUENTLY WITH ELECTRODES CHANGED AND MOVED. PT HAVING DIFFICULTY GETTING COMFORTABLE, HOB ELEVATED NEAR 90 DEGREES PER REQUEST AT THIS TIME AND STATES COMFORT AT THIS TIME. WILL CONTINUE TO OBSERVE.
[2018-12-12] VITALS (39 sets, daily range): BP systolic 82–106; BP diastolic 58–95
--- NOTE | 2018-12-12 01:25 | NUR ---
PT WITH BM WITH PERICARE PROVIDED AND PAD CHANGE. PT ASSISTS WIT TURNING.
--- NOTE | 2018-12-12 03:05 | NUR ---
DIALYSIS FLUIDS ADMINISTERED, PT TOLERATED WELL. 2500 NOTED TO COLLECTION BAG, YELLOW IN COLOR. REASSESSMENT COMPLETED, SEE FLOW SHEET.
[2018-12-12 04:42] LABS: BASOPHILS 0 % (0-2); EOSINOPHILS 0.4 % (0-7); HEMATOCRIT 30.1 % (42.0-54.0); HEMOGLOBIN 9.5 g/dL (13.5-17.5); IMMATURE GRANULOCYTES 1.1 % (0-5); LYMPHOCYTES 3.4 % (15-50); MCH 27.6 pg (26.0-34.0); MCHC 31.6 g/dL (31.0-37.0); MCV 87.5 fL (80.0-100.0); MEAN PLATELET VOLUME 10.4 fL (7.4-10.4); MONOCYTES 5.2 % (2-11); NEUTROPHILS 89.9 % (40-80); PLATELET COUNT 364 10x3/uL (130-400); RBC 3.44 10x6/uL (4.20-6.10); RDW 17.6 % (11.5-14.5); WBC 20.5 10x3/uL (4.8-10.8)
[2018-12-12 05:02] LABS: ANION GAP 23.4 mmol/L (8-16); CARBON DIOXIDE 22.8 mmol/L (21.0-32.0); CREATININE - SERUM 7.1 mg/dL (0.6-1.3); POTASSIUM - SERUM 3.2 mmol/L (3.5-5.1); VANCOMYCIN - RANDOM 19.6 ug/mL (10.0-20.0)
[2018-12-12 05:06] LABS: CALCIUM 6.9 mg/dL (8.5-10.1)
--- NOTE | 2018-12-12 08:15 | NUR ---
DR CESPEDES HERE THIS AM. I.R. DR SANTOS HERE THIS AM. CALLED TIFF WITH CARDIOLOGY THIS AM AND REPORTED THAT PT ON CARDIZEM GTT AND IS SCHEDULED FOR PROCEDURES THIS AM.
--- NOTE | 2018-12-12 09:05 | NUR ---
TIFF HERE WITH CARDIOLOGY. CONTINUING EDUCATION SPECIALIST WITH ORTHO HERE THIS AM WELL. REC'D NEW ORDERS. PT IS NPO FOR PROCEDURES. PT C/O SOB AND GENERALIZED DISCOMFORT TO BUTTOCKS AND BLE. CALLED DR EUGENE AND REPORTED. REC'D NEW ORDERS.
[2018-12-12 10:12] LABS: INR 1.62 (0.85-1.17); PROTIME 18.6 SECONDS (11.6-15.0)
--- NOTE | 2018-12-12 15:03 | NUR ---
PT TO I.R. PREOP MEDS GIVEN AND CONCENTS ON CHART.
--- NOTE | 2018-12-12 17:42 | NUR ---
PT BACK TO ICU, INTUBATED AND VENT SETTINGS PER RT.
--- NOTE | 2018-12-12 17:46 | NUR ---
PAGED DR BELL GR[employer] STORE BAGGER FOR NEPHROLOGY.
--- NOTE | 2018-12-12 19:40 | NUR ---
CONSENTS SIGNED BY PT FOR CVL PLACEMENT, PLACED RT SUBCLAVIAN TRIPPLE LUMEN CVL @1940, WITH CHARGE NURSE BARRETT ASSISTING AT BEDSIDE, NO ACUTE S/S OF DISTRESS NOTED, X-RAY COMPLETED S/P INCERTION, IVF ATTACHED TO CVL, COOKIE C/D/I, WILL CONTINUE TO MONITOR
--- NOTE | 2018-12-12 20:30 | NUR ---
FAMILY AT BEDSIDE, UPDATE GIVEN, ANSWERED QUESTIONS OR CONCERNS, NO FURTHER AT THIS TIME, VSS, WILL CONTINUE TO ASSESS
--- NOTE | 2018-12-12 23:00 | NUR ---
REASSESSMENT COMPLETE PER FLOW SHEET, NO ACUTE DISTRESS NOTED, B/P DECREASED TITRATING LEVOPHED PER ORDERS, OTHER VSS, REPOSITIONED IN BED FOR COMFORT, WILL CONTINUE TOP ASSESS
[2018-12-13] VITALS (83 sets, daily range): BP systolic 73–160; BP diastolic 45–83
--- NOTE | 2018-12-13 03:00 | NUR ---
REASSESSMENT COMPLETE PER FLOW SHEET, NO ACUTE DISTRESS NOTED, PERITONEAL DIALYSIS DRAINING, B/P ON LEVOPHED TITRATING, OTHER VSS, REPOSITIONED TO ASSIST PD FLOW OUT, HOB ELEVATED, COMPLETE LINEN CHANGE, ELEVATED EXTRREMITIES, DOPLER USED FOR BLE, VENT SETTINGS PER RT AND ORDERS, WILL CONTINUE TO ASSESS
--- NOTE | 2018-12-13 04:40 | NUR ---
CHANGE FIO2 TO 40% PER MORNING ABG RESULT
[2018-12-13 05:17] LABS: HEMATOCRIT 29.8 % (42.0-54.0); HEMOGLOBIN 9.5 g/dL (13.5-17.5); MCH 27.2 pg (26.0-34.0); MCHC 31.9 g/dL (31.0-37.0); MCV 85.4 fL (80.0-100.0); MEAN PLATELET VOLUME 10.2 fL (7.4-10.4); PLATELET COUNT 459 10x3/uL (130-400); RBC 3.49 10x6/uL (4.20-6.10); RDW 17.7 % (11.5-14.5); WBC 20.4 10x3/uL (4.8-10.8)
[2018-12-13 05:26] LABS: ANION GAP 19.9 mmol/L (8-16); CARBON DIOXIDE 22.6 mmol/L (21.0-32.0); CREATININE - SERUM 7.1 mg/dL (0.6-1.3); POTASSIUM - SERUM 3.5 mmol/L (3.5-5.1); VANCOMYCIN - RANDOM 19.5 ug/mL (10.0-20.0)
[2018-12-13 05:33] LABS: CALCIUM 6.9 mg/dL (8.5-10.1)
[2018-12-13 06:05] LABS: EOSINOPHILS 2 % (0-7); LYMPHOCYTES 14 % (15-50); MONOCYTES 3 % (2-11); NEUTROPHILS 81 % (40-80); PLATELET ESTIMATE INCREASED
--- NOTE | 2018-12-13 09:35 | NUR ---
NUTRITION F//U PT CURRENTLY NPO FOR PROCEDURE TODAY. WILL PROVIDE DIET WHEN RESUMED, MONITOR PO INTAKE. RD FOLLOWING
--- NOTE | 2018-12-13 11:45 | NUR ---
1125 ARRIVED FROM PACU POST OP RIGHT HIP REPLACEMENT. INITIATED FREQUENT VITAL SIGNS ASSESSMENT COMPLETE CAN FOLLOW SOME INSTRUCTIONS BUT INCONSISTENT
--- NOTE | 2018-12-13 11:55 | NUR ---
0700 AWAKENS TO VOICE REMAINS CALM VIOLETA SOFT WRIST RESTRAINTS LEVOPHED INFUSING AT 3MCG/HOUR DENIES PAIN AT THIS TIME ASSESSMENT COMPLETE
--- NOTE | 2018-12-13 11:57 | NUR ---
0900 INDREASEWD LEPHED TO 4MCG/HOUR
--- NOTE | 2018-12-13 11:57 | NUR ---
0930 ANESTHESIA STAFF PLACED RIGHT RADIAL ART LINE WITHOUT DIFFICULTY LINE ZEROED AND IN WORKING ORDER
--- NOTE | 2018-12-13 11:59 | NUR ---
1030 HCG PRE SURGICAL BATH COMPLETE
--- NOTE | 2018-12-13 11:59 | NUR ---
1145 PATIENT TRANSPORTED TO OR VIA BED ACCOMPANIED BY OR STAFF
--- NOTE | 2018-12-13 14:12 | NUR ---
1355 PATIENT RETURNED FROM SURGERY LEVOPHED GTT INFUSING AT 6MCG/HOUR PT PLACED BACK ON VENT 02 ADL373% FAMILY ALLOWED IN TO VISIT WITH PATIENT SURGERY UPDATE GIVEN EMOTIONAL SUPPORT PROVIDED
--- NOTE | 2018-12-13 15:47 | NUR ---
1500 SIGNS OF PAIN INCRREASED FENTANYL TO2ML/HOUR
--- NOTE | 2018-12-13 17:32 | NUR ---
1630 CBS 63 1/2 AMP D50% GIVEN ASYMPTOMATIC
--- NOTE | 2018-12-13 17:33 | NUR ---
1700 REPEAT CBS 87 NO ACTION INDICATED
--- NOTE | 2018-12-13 18:44 | NUR ---
1715 LEVAPHED CONTINUES AT 6MCG/MIN
--- NOTE | 2018-12-13 21:02 | NUR ---
FAMILY AT BEDSIDE, UPDATE GIVEN, NO FURTHER NEEDS AT THIS TIME
--- NOTE | 2018-12-13 21:22 | NUR ---
PAGED TO VERIFY STARTING PD S/P ORTHO SURGERY DURING DAY
--- NOTE | 2018-12-13 21:26 | NUR ---
CALLED ICU, UPDATE GIVEN ON PT, STATED IT WAS OK TO CONTINUE WITH PERITONEAL DIALYSIS POST-OP
--- NOTE | 2018-12-13 22:13 | NUR ---
PT VENT Vt DECREASED AND GARGALING SOUNDS MADE BY PT AROUND ETT, RT NOTIFIED, RT CHECKED CUFF PRESSURE AND REINFLATED CUFF, VENT Vt INCREASED AND PT SOUND DEMINISHED, WILL CONTINUE TO MONITOR, PT IN NO ACUTE DISTRESS, VSS ON CM
[2018-12-14] VITALS (81 sets, daily range): BP systolic 80–143; BP diastolic 42–93
--- NOTE | 2018-12-14 04:34 | NUR ---
CHANGED PATIENT FIO2 TO 40% BECAUSE OF MORNING ABG
--- NOTE | 2018-12-14 05:06 | NUR ---
FSBG 33, D50 GIVEN PER DEC, WILL REASSESS, AM LABS DRAWN AND SENT TO LAB AFTER D50 ADMIN, VSS ON CM, PT AROUSES TO VERBAL STEMULI WILL CONTINUE TO ASSESS
[2018-12-14 05:16] LABS: ANION GAP 18.2 mmol/L (8-16); CARBON DIOXIDE 25.9 mmol/L (21.0-32.0); CREATININE - SERUM 7.7 mg/dL (0.6-1.3); POTASSIUM - SERUM 3.1 mmol/L (3.5-5.1); VANCOMYCIN - RANDOM 22.2 ug/mL (10.0-20.0)
[2018-12-14 05:17] LABS: CALCIUM 6.2 mg/dL (8.5-10.1)
[2018-12-14 05:31] LABS: BASOPHILS 0.1 % (0-2); EOSINOPHILS 2.4 % (0-7); HEMOGLOBIN 8.6 g/dL (13.5-17.5); IMMATURE GRANULOCYTES 1.8 % (0-5); LYMPHOCYTES 9.5 % (15-50); MCH 26.9 pg (26.0-34.0); MCHC 31.9 g/dL (31.0-37.0); MCV 84.4 fL (80.0-100.0); MEAN PLATELET VOLUME 9.5 fL (7.4-10.4); MONOCYTES 6.7 % (2-11); NEUTROPHILS 79.5 % (40-80); WBC 16.5 10x3/uL (4.8-10.8)
[2018-12-14 05:32] LABS: PLATELET COUNT 360 10x3/uL (130-400)
[2018-12-14 09:17] LABS: HEMATOCRIT 26.3 % (42.0-54.0); HEMOGLOBIN 8.5 g/dL (13.5-17.5); MCH 26.9 pg (26.0-34.0); MCHC 32.3 g/dL (31.0-37.0); MCV 83.2 fL (80.0-100.0); MEAN PLATELET VOLUME 9.2 fL (7.4-10.4); RBC 3.16 10x6/uL (4.20-6.10); RDW 17.7 % (11.5-14.5); WBC 16.1 10x3/uL (4.8-10.8)
[2018-12-14 09:20] LABS: APTT 37.6 SECONDS (22.8-39.4); INR 1.99 (0.85-1.17)
--- NOTE | 2018-12-14 11:36 | NUR ---
0700 ASSESSMENT COMPLETE DECREASED LEVOPHED TO 2MCG/MIN TO MAINTAIN B/P
--- NOTE | 2018-12-14 11:38 | NUR ---
0853 PD CATH DRAINING SLOW NOTIFIED DR EUGENE SAID HE WILL BE HERE SOON
--- NOTE | 2018-12-14 11:39 | NUR ---
0930 PD CATH REMAINS WITH SLOW DRAINAGE DR EUGENE ASSESSING PD DIALYSIS INSTRUCTED TO CONTINUE DRAINAGE, DO NOT RESTART SOLUTION K 40MEQ IN POWDER FORM FOR LOW POTASSIUM OF 3.1
--- NOTE | 2018-12-14 11:42 | NUR ---
1045 STARTED D10W AT 30ML/HOUR STOPPED BICARB GTT PER DR EUGENE ORDERS STARTED NS AT 50ML/HR CBS 45 12 AMP D50 GIVEN
--- NOTE | 2018-12-14 11:45 | NUR ---
1100 REPEAT CBS WNL
--- NOTE | 2018-12-14 15:17 | NUR ---
1244 STARTED HD PER MADHU RN ACCESSED LEFT WRIST FISTULA FOR 1ST TIME NO COMPLICATIONS NOTED
--- NOTE | 2018-12-14 15:19 | NUR ---
1445 HD COMPLETE NO ML HAVE BEEN PULLED OFF PATIENT TOLERATED PROCEEDURE WELL
--- NOTE | 2018-12-14 15:20 | NUR ---
1500 CBS REMAIN WNL SINCE ADDING D10W AT 30ML/HOUR NOW 82
--- NOTE | 2018-12-14 19:30 | NUR ---
REPORT RECEIVED, SHIFT ASSESSMENT COMPLETE PER FLOW SHEET, PT RESTING WITH EYES CLOSED, WAKES WITH VERBAL STIMULI, PT ENTUBATED ON VENT WITH SETTINGS PER ORDERS, ORAL CARE AND SUCTIONIONG COMPLETE, PT HAS SMALL ETT CUFF LEAK NOTED BY HEARING AIR MOVEMENT AROUND CUFF AND VENT Vt VOLUME DECREASED, RT AT BEDSIDE REINFLATING ETT CUFF, PT CALM AND COOPERATIVE, ABLE TO ANSWEER YES/NO QUESTIONS WITH HEAD MOVEMENT, OGT PLACEMENT VERIFIED BY AIR BOLUS AUSCULTATION, MEDS INFUSING PER MAR/ORDERS, ART-LINE AND CVP ZEROED, RIGHT BKA DRSG C/D/I PALPABLE PROXIMAL PULSES, NO S/S OF MAJOR BLEEDING, PT MOVED RT LEG WITHOUT ASSIST, LLE SURGICAL I&D WITH MARIANELA WRAP DRSG PLACED AFTER PROCEDURE, PT ABLE TO MOVE EXTREMITY AND ABLE TO FEEL TOUCH, PT FREQUENTLY REPOSITIONED FOR COMFORT, VSS, AND FAMILY AT BEDSIDE, UPDATE GIVEN, NOP QUESTIONS OR NEEDS AT THIS TIME, WILL CONTINUE TO ASSESS
--- NOTE | 2018-12-14 20:54 | NUR ---
RT AT BEDSIDE, ETT Vt ZERO ON VENT, CUFF COMPLETELY DEFLATED, PT BREATHING AROUND CUFF, RT AND RN USING VENTILATING PT WITH AMBU BAG ATTACHED TO SUPPLAMENTAL OXYGEN, PT SPO2 98% ON CM, PT CALM AND COOPERATIVE, 0.5 MG MIDAZOLAM GIVEN TO PT, VSS ON CM ER PHYSICIAN AT BEDSIDE TO REPLACE ETT, NOTIFIED ORDERD 5 MG MEDAZOLAM TOTAL FOR SEDATION PRIOR TO REINTUBATION, 4.5 MG MEDAZOLAM GIVEN BY RN, WITH RT PATRICKN/OPAL REMOVED AND REPLACED ETT WITH SIZE 8.O ETT @ 24MM LIP LINE MIDDLE, BILAT LUNG SOUNDS AUSCULTATED, PT ATTACHED TO VENT WITH SETTINGS PER ORDERS, STAT X-RAY ORDERED TO CHECK PLACEMENT, PT VSS ON CM, WILL CONTINUE TO MONITOR CONTINUE TO MONITOR
--- NOTE | 2018-12-14 21:30 | NUR ---
X-RAY READ BACK BY REHAN, SEE DOCUMENT FOR FURTHER, RT SKYLAR CALLED AND NOTIFIED ALSO NOTIFIED RT OPAL, OPAL STATED ETT PLACEMENT AT LEVEL WANTS AND SHE IS LEAVING ETT AT CURRENT PLACEMENT, PT IN NO ACUTE DISTRESS, VSS, AND FAMILY AT BEDSIDE, UPDATE GIVEN, QUESTIONS OR CONCERNS ANSWERED, WILL CONTINUE TO ASSESS
--- NOTE | 2018-12-14 22:09 | NUR ---
REHAN WITH X-RAY CALLED BACK ICU, STATED REVIEWED X-RAY OF ETT PLACEMEMENT AND WANTED TO ADVANCE ETT PLACEMENT BY 2CM, NIKHIL NOTIFIED
--- NOTE | 2018-12-14 23:24 | NUR ---
PER ORDERS; ADVANCE ETT BY 2, RT AT BEDSIDE, ETT AFTER ADVANCE 26CM AT LIP LINE, NO S/S OF ACUTE DISTRESS, WILL CONTINUE TO MONITOR WITH RT
--- NOTE | 2018-12-14 23:24 | NUR ---
PT HAD TO GET A NEW ET TUBE. WAS PLACED BY ER DOCTOR TESFAYE. TUBE IS A 8 AND WAS 24 AT THE LIP. ER DOCTOR VIEWED XRAY AND ADVISED THAT WE ADVANCE TUBE 2 cm. TUBE IS NOW 26 AT THE LIP
[2018-12-15] VITALS (80 sets, daily range): BP systolic 90–138; BP diastolic 38–96
--- NOTE | 2018-12-15 01:00 | NUR ---
PT RESTING IN BED WITH EYES CLOSED, NO ACUTE S/S OF DISTRESS, REPOSITIONED PT IN BED, PT DENIES NEEDS, VSS, TITRATING LEVOPHED DOWN PER B/P, WILL CONTINUE TO ASSSESS
[2018-12-15 01:04] LABS: HEMATOCRIT 26.6 % (42.0-54.0); HEMOGLOBIN 8.6 g/dL (13.5-17.5); MCH 28.1 pg (26.0-34.0); MCHC 32.3 g/dL (31.0-37.0); MEAN PLATELET VOLUME 8.9 fL (7.4-10.4); RBC 3.06 10x6/uL (4.20-6.10); RDW 19.8 % (11.5-14.5); WBC 16.3 10x3/uL (4.8-10.8)
[2018-12-15 01:05] LABS: MCV 86.9 fL (80.0-100.0)
--- NOTE | 2018-12-15 03:00 | NUR ---
REASSESSMENT COMPLETE PER FLOW SHEET, NO ACUTE CHANGES OR DISTRESS NOTED, VSS, REPOSITIONED FOR COMFORT, WILL CONTINUE TO ASSESS
--- NOTE | 2018-12-15 05:00 | NUR ---
PT SLEEPING, WAKES WITH VERBAL STIMULI, DENIES PAIN, VSS, REPOSITIONED FOR COMFORT, AT BEDSIDE, WILL CONTINUE TO MONITOR
[2018-12-15 05:32] LABS: BASOPHILS 0.1 % (0-2); HEMOGLOBIN 7.9 g/dL (13.5-17.5); IMMATURE GRANULOCYTES 1.9 % (0-5); LYMPHOCYTES 10.1 % (15-50); MCH 26.9 pg (26.0-34.0); MCHC 31.6 g/dL (31.0-37.0); MONOCYTES 5.1 % (2-11); NEUTROPHILS 80.8 % (40-80); PLATELET COUNT 264 10x3/uL (130-400); RBC 2.94 10x6/uL (4.20-6.10); RDW 18.1 % (11.5-14.5); WBC 16.2 10x3/uL (4.8-10.8)
[2018-12-15 06:07] LABS: CARBON DIOXIDE 22.7 mmol/L (21.0-32.0); CREATININE - SERUM 6.9 mg/dL (0.6-1.3); VANCOMYCIN - RANDOM 18.4 ug/mL (10.0-20.0)
[2018-12-15 06:17] LABS: ANION GAP 19.2 mmol/L (8-16); POTASSIUM - SERUM 3.9 mmol/L (3.5-5.1)
[2018-12-15 06:18] LABS: CALCIUM 6.3 mg/dL (8.5-10.1)
--- NOTE | 2018-12-15 10:03 | NUR ---
0700 AWAKE ALERT FOLLOWS INSTRUCTIONS ASSESSMENT COMPLETE
--- NOTE | 2018-12-15 10:33 | NUR ---
NUTRITION F/U CHART REVIEWED. PT ON VENT. MAY REQUIRE NUTRITION SUPPORT IF UNABLE TO WEAN FROM VENT IN [address] FOLLOWING
--- NOTE | 2018-12-15 11:27 | NUR ---
0900 RESTARTED LEVOPHED AT 2MCG/KG
--- NOTE | 2018-12-15 11:28 | NUR ---
1100 NEW ORDERS TO START DOBUTREX NOTED D10 DECREASED TO KVO
[2018-12-15 11:59] LABS: BASOPHILS 0.2 % (0-2); HEMATOCRIT 24.5 % (42.0-54.0); HEMOGLOBIN 7.9 g/dL (13.5-17.5); IMMATURE GRANULOCYTES 2.1 % (0-5); LYMPHOCYTES 12.3 % (15-50); MCHC 32.2 g/dL (31.0-37.0); MCV 83.6 fL (80.0-100.0); MEAN PLATELET VOLUME 9.3 fL (7.4-10.4); MONOCYTES 6.4 % (2-11); PLATELET COUNT 289 10x3/uL (130-400); RBC 2.93 10x6/uL (4.20-6.10); RDW 18.1 % (11.5-14.5); WBC 15.5 10x3/uL (4.8-10.8)
--- NOTE | 2018-12-15 18:00 | NUR ---
1300 TRIAL WITH NO RESTRAINTS INITIATED.
--- NOTE | 2018-12-15 18:04 | NUR ---
1700 WATCHING TV W/O COMPLAINTS LEVOPHED INFUSION REMAINS OFF NEW T & C DRAWN BLOOD BAND LOCATED ON LEFT ANKLE
--- NOTE | 2018-12-15 19:20 | NUR ---
SHIFT ASSESSMENT COMPLETED SEE FLOWSHEET
--- NOTE | 2018-12-15 23:10 | NUR ---
REASSESSMENT COMPLETED SEE FLOWSHEET
--- NOTE | 2018-12-15 23:45 | NUR ---
RECEIVED LAB VALUES HEPARIN DRIP ADJUSTED, SEE FLOWSHEET, REDRAW ORDER SUBMITTED PER PROTOCOL. VSS CPOC
[2018-12-16] VITALS (24 sets, daily range): BP systolic 80–142; BP diastolic 6–72
[2018-12-16 05:49] LABS: BASOPHILS 0.2 % (0-2); EOSINOPHILS 1.9 % (0-7); HEMATOCRIT 22.3 % (42.0-54.0); IMMATURE GRANULOCYTES 1.7 % (0-5); LYMPHOCYTES 13.7 % (15-50); MCH 27.8 pg (26.0-34.0); MCHC 32.7 g/dL (31.0-37.0); MCV 84.8 fL (80.0-100.0); MONOCYTES 9.1 % (2-11); NEUTROPHILS 73.4 % (40-80); PLATELET COUNT 267 10x3/uL (130-400); RBC 2.63 10x6/uL (4.20-6.10); RDW 18.2 % (11.5-14.5); WBC 15.1 10x3/uL (4.8-10.8)
[2018-12-16 06:10] LABS: HEMOGLOBIN 7.3 g/dL (13.5-17.5)
[2018-12-16 06:11] LABS: ANION GAP 20.1 mmol/L (8-16); CARBON DIOXIDE 22.9 mmol/L (21.0-32.0); CREATININE - SERUM 7.7 mg/dL (0.6-1.3); VANCOMYCIN - RANDOM 25.4 ug/mL (10.0-20.0)
[2018-12-16 06:27] LABS: CALCIUM 6.1 mg/dL (8.5-10.1)
--- NOTE | 2018-12-16 06:32 | NUR ---
CALLED CRITICAL LABS TO DR PAZ, HE ACKNOWLEDGED AND REQUESTED TO LET ORTHO KNOW
--- NOTE | 2018-12-16 06:38 | NUR ---
CONTACTED MOISE TORRES APN ABOUT CRITICAL LAB VALUES - ORDERED A SERUM ALBUMIN AND TWO UNITS PRBC'S IF OK WITH RENAL
--- NOTE | 2018-12-16 06:42 | NUR ---
PAGED RENAL AT THIS TIME
--- NOTE | 2018-12-16 06:56 | NUR ---
DR. EUGENE RETURNED PAGE ORDERS RECEIVED
--- NOTE | 2018-12-16 09:10 | NUR ---
FENT. RATE REDUCED TO 25MCG/HR FOR CPAP TRIAL.
--- NOTE | 2018-12-16 09:48 | OP ---
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 PROCEDURE: Right below-knee amputation. Left lower extremity debridement. SURGEON: Jefferson Franklin MD ANESTHESIA: General. INTRAOPERATIVE COMPLICATIONS: Essentially none. SUMMARY OF PATHOLOGIC FINDINGS: The patient had excellent perfusion of the flap and the distal portion of the lower extremity and it did appear that a BKA would heal rather than an AKA. INDICATIONS: Rashel Duvall came in with bilateral lower extremity ischemic necrosis, will likely wind up having to have operative intervention on the other side. Radiographs show the patient to have severe Charcot arthropathy. The patient preoperatively was known to be very noncompliant with his diabetes. He had a revascularization procedure done the day prior and was left intubated and remains intubated for this procedure. This was discussed with his family and they understand the gravity of this patient's overall situation given the fact that he has is septic. OPERATIVE SUMMARY IN DETAIL: After obtaining the appropriate preoperative orthopedic surgery consent as well as anesthetic consultation, evaluation and clearance, the patient was brought to the operating room and placed on the operating room table in supine position. After the patient's previously placed tube was checked and anesthesia was given, tourniquet was placed about the proximal aspect of the right lower extremity. Right lower extremity was then prepped and draped in routine sterile fashion. The leg was held up, not exsanguinated. Tourniquet was inflated. The planned incision was drawn about the lower aspect of the knee. Incision was made in a posterior flap style taken down to the level of the tibia as well as fibula. The tibia and fibula were osteotomize in rapid succession followed by Chevron cut in the proximal aspect of the tibia. Posterior flap was cut off at the amputation. At this point, all vessels were identified, cut and ligated. The tourniquet was deflated and all vasculature was secured. Wound was then irrigated and closed with a combination of #1 Vicryl as well as #1 Prolene using retention style sutures. Please note assisting this case was Wisam Dewitt for airline pilot/first officer. After closure had been achieved, attention was turned to the left lower extremity. Gentle topical debridement was done of the left lower extremity. As the patient has multiple areas of skin necrosis; however, he is continuing to perfuse his lower extremity to the point where he may require only a below-knee amputation here as well. Plans have been made to not do that at this time with the potential for further revascularization of the lower extremity. Having completed this, the patient was left intubated and taken back to the ICU in critical condition. All final OPERATIVE REPORT [id number] RASHEL DUVALL needle and sponge counts were correct. TRANSINT:[id number] Voice Confirmation ID: [id number] DOCUMENT ID: [id number] NOEMI DELACRUZ, JEFFERSON ORDONEZ at 0948 CC: [id number] DICTATION DATE: 12/15/18 1110 PUTTIER: 12/15/18 1255 ADM IN [facility] [address] [place] [address]
--- NOTE | 2018-12-16 19:30 | NUR ---
RECEIVED PATIENT CARE FIT ASSESSMENT COMPLETED SEE FLOWSHEET. PT NOT RESTRAINED AT THIS TIME, RESTING COMFORTABLY ON THE VENT, ABLE TO FOLLOW COMMANDS, EYES OPEN SPONTANEOUSLY. VSS CPOC
--- NOTE | 2018-12-16 20:25 | NUR ---
FAMILY AT BEDSIDE, UPDATE GIVEN ALL QUESTIONS ANSWERED - RECEIVED WASHCLOTH PER REQUEST FOR EYE CARE. PROVIDING ORAL CARE
--- NOTE | 2018-12-16 22:12 | NUR ---
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 PATIENT TOLERATED WELL, DENIES FURTHER NEEDS VSS CPOC
[2018-12-17] VITALS (25 sets, daily range): BP systolic 109–129; BP diastolic 56–72
[2018-12-17 06:46] LABS: BASOPHILS 0.1 % (0-2); EOSINOPHILS 1.4 % (0-7); HEMOGLOBIN 8.6 g/dL (13.5-17.5); IMMATURE GRANULOCYTES 2.2 % (0-5); LYMPHOCYTES 13.4 % (15-50); MCHC 31.9 g/dL (31.0-37.0); MCV 84.6 fL (80.0-100.0); MEAN PLATELET VOLUME 9.4 fL (7.4-10.4); MONOCYTES 9.1 % (2-11); NEUTROPHILS 73.8 % (40-80); PLATELET COUNT 253 10x3/uL (130-400); RDW 18.4 % (11.5-14.5); WBC 13.8 10x3/uL (4.8-10.8)
[2018-12-17 06:47] LABS: RBC 3.19 10x6/uL (4.20-6.10)
[2018-12-17 07:26] LABS: ANION GAP 23.8 mmol/L (8-16); CREATININE - SERUM 6.9 mg/dL (0.6-1.3); POTASSIUM - SERUM 3.8 mmol/L (3.5-5.1); VANCOMYCIN - RANDOM 22.3 ug/mL (10.0-20.0)
[2018-12-17 07:27] LABS: CALCIUM 6.9 mg/dL (8.5-10.1)
--- NOTE | 2018-12-17 12:45 | NUR ---
EXTUBATED TO BIPAP PER RT
--- NOTE | 2018-12-17 19:30 | NUR ---
PT CARE RECEIVED - RT NOTIFIED THIS RN THAT PATIENT IS ON 3L NC - SHIFT ASSESSMENT COMPLETED, PT DENIES NEEDS AT THIS TIME, DENIES PAIN VSS CPOC
--- NOTE | 2018-12-17 20:11 | NUR ---
FAMILY AT BEDSIDE, UPDATE GIVEN ALL QUESTIONS ANSWERED SEE FLOWSHEET
--- NOTE | 2018-12-17 20:30 | NUR ---
PT REQUESTED O2 INCREASE, NC NOT IN NOSE PROPERLY READJUSTED AND BUMPED TO 5L ASKED PATIENT TO NOTIFY THIS RN VIA CALL LIGHT IF STILL FEELING SOB - PATIENT VERBALIZED UNDERSTANDING. SPO2 ADEQUATE VSS CPOC
[2018-12-18] VITALS (24 sets, daily range): BP systolic 86–145; BP diastolic 43–89
--- NOTE | 2018-12-18 01:33 | NUR ---
PATIENT RESTING COMFORTABLY, ATTENTION FOCUSED ON TV - DENIES NEEDS, REFUSED TURN, WILL CONTINUE TO MONITOR
--- NOTE | 2018-12-18 02:15 | NUR ---
PATIENT REQUESTED BIPAP TO BE REMOVED CO MOUTH DRYNESS. GAVE ICE CHIP PATIENT TOLERATED. VSS CPOC
[2018-12-18 02:37] LABS: HEMATOCRIT 28.3 % (42.0-54.0); HEMOGLOBIN 8.7 g/dL (13.5-17.5); MCH 26.8 pg (26.0-34.0); MCHC 30.7 g/dL (31.0-37.0); MCV 87.1 fL (80.0-100.0); RBC 3.25 10x6/uL (4.20-6.10); RDW 18.4 % (11.5-14.5); WBC 14.3 10x3/uL (4.8-10.8)
--- NOTE | 2018-12-18 02:54 | NUR ---
REASSESSMENT COMPLETED SEE FLOWSHEET. NO ACUTE CHANGES, PATIENT DENIES NEEDS AT THIS TIME VSS CPOC
--- NOTE | 2018-12-18 04:00 | NUR ---
PATIENT RANG CALL LIGHT STATED HE "MESSED HISSELF" COMPLETE BEDCHANGE AT THIS TIME. DENIES FURTHER NEEDS
[2018-12-18 05:06] LABS: BASOPHILS 0.1 % (0-2); EOSINOPHILS 1.3 % (0-7); HEMATOCRIT 28.6 % (42.0-54.0); HEMOGLOBIN 8.8 g/dL (13.5-17.5); LYMPHOCYTES 9.9 % (15-50); MCHC 30.8 g/dL (31.0-37.0); MCV 87.7 fL (80.0-100.0); MEAN PLATELET VOLUME 9.1 fL (7.4-10.4); MONOCYTES 8.8 % (2-11); NEUTROPHILS 77.9 % (40-80); PLATELET COUNT 217 10x3/uL (130-400); RBC 3.26 10x6/uL (4.20-6.10); RDW 18.3 % (11.5-14.5); WBC 14.3 10x3/uL (4.8-10.8)
[2018-12-18 05:19] LABS: ANION GAP 20.4 mmol/L (8-16); CARBON DIOXIDE 21.5 mmol/L (21.0-32.0); CREATININE - SERUM 7.7 mg/dL (0.6-1.3); POTASSIUM - SERUM 3.9 mmol/L (3.5-5.1)
[2018-12-18 05:27] LABS: CALCIUM 6.8 mg/dL (8.5-10.1)
--- NOTE | 2018-12-18 07:00 | NUR ---
RECEIVED REPORT IN ROOM FROM OFFGOING NURSE. PATIENT RESTING IN BED WITH STABLE VSS AWAKE ALERT AND ORIENTED. VIOLETA SURGICAL DRESSINGS TO RIGHT BKA AND LEFT I&D CLEAN AND DRY. RIGHT RADIAL ART LINE. RIGHT SUBLCAVIAN CENTRAL LINE WITH NS INFUSING AT 10 AND DOBUTAMINE AT 2.5 MCG SET RATE. TURNED PATIENT TO LEFT SIDE. SMALL BM. NURSE CLEANED AND CHANGED PAD. STAGE TWO PRESSURE ULCER TO SACRUM.
--- NOTE | 2018-12-18 08:15 | NUR ---
SUPERINTENDENT CONCRETE [employer]ING [employer] FOR ORTHO CAME BY TO CHANGE RIGHT BKA DRESSING. REMOVED LEFT LEG AND DRESSING AND STATED WILL PUT IN ORDERS FOR DRESSING CHANGE TO BE DONE BY NURSE ONCE DONALDO IS UP HERE. ALSO IS GOING TO PUT IN ORDER TO SWITCH IV HEPARIN DRIP TO SUBQ. PATIENT STABLE. WILL CONTINUE TO MONITOR
--- NOTE | 2018-12-18 08:43 | NUR ---
SPOKE TO PHARMACY ABOUT BRINGING UP [employer] OINTMENT FOR DRESSING CHANGES
--- NOTE | 2018-12-18 09:54 | NUR ---
CHANGED LEFT LEG DRESSING PER ORDERS. STOPPED HEPARIN INFUSION AND GAVE SUBQ HEPARIN. VSS. WILL CONTINUE TO MONITOR
--- NOTE | 2018-12-18 10:27 | NUR ---
CONSULTED D[facility]RELL AND SPOKE TO PAT ABOUT ACQUIRING A STUMP PROTECTOR FOR PATIENT. STATED THEY WILL BRING ONE UP THIS AFTERNOON.
--- NOTE | 2018-12-18 11:00 | NUR ---
PATIENT HAD LARGE LOOSE BM. NURSE CLEANED AND CHANGED PADS. TURNED TO LEFT SIDE. AXILLARY TEMP 92.7. APPLIED BEAR HUGGER. WILL RECHECK TEMP. VSS.
--- NOTE | 2018-12-18 12:03 | NUR ---
Nutrition follow-up: Pt remains NPO following extubation 12/17 labs reviewed Wt: 289# s/p right BKA, Left I&D +BM If diet unable to advance today recommend starting nutrition support; NGT vs PEG tube placement and TF started. RDN following.
--- NOTE | 2018-12-18 13:57 | NUR ---
SPOKE TO HENRY JON ON PHONE. REQUESTED FAXED ORDER FOR STUMP PROTECTOR. DID SO.
--- NOTE | 2018-12-18 14:13 | NUR ---
REMOVED ART LINE PER ORDER FROM DR. CESPEDES. NO BLEEDING OCCURRED. DRESSED WITH GUAZE AND TEGADERM.
--- NOTE | 2018-12-18 15:05 | NUR ---
PATIENT RESTING IN BED WITH STABLE VS ON BIPAP. REMOVED BIPAP AND REPLACED HIGH FLOW NC AT 4 L/MIN FOR SWALLOW EVAL. TEMPERATURE 97.6 WITH BEAR HUGGER.
--- NOTE | 2018-12-18 16:20 | NUR ---
PATIENT HAD LOOSE BM. NURSES CLEANED CHANGED LINENS AND PULLED UP IN BED.
--- NOTE | 2018-12-18 16:46 | NUR ---
REMOVED BIPAP AND PLACED BACK ON HIGH FLOW NC AT 10L/MIN. VSS. WILL CONTINUE TO MONITOR. IN ROOM.
--- NOTE | 2018-12-18 17:16 | NUR ---
JAMES FROM [facility] CAME TO SEE PATIENT AND MEASURE RIGHT BKA STUMP. WILL BE BACK IN A COUPLE OF DAYS WITH THE ACTUAL STUMP PROTECTOR BECAUSE [employer] IS OUT OF THEM.
--- NOTE | 2018-12-18 19:00 | NUR ---
REPORT RECEIVED. RECEIVED PT SITTING UP IN BED, AWAKE AND ALERT. ORIENTED X 4. SPEECH CLEAR AND APPROPRIATE. ASSESSMENT COMPLETED PER FLOW SHEET WITH NO DISTRESS OBSERVED. MONITORS CONNECTED TO PATIENT WITH ALARMS SET. VSS.
--- NOTE | 2018-12-18 21:00 | NUR ---
AWAKE AND ALERT. ORIENTED X 4. DENIES PAIN. CONTINUES IN CONTACT ISOLOTION WITH PRECAUTIONS OBSERVED. IV FLUIDS/TUBING LABELED/DATED AND CURRENT. DRSGS TO BLE CLEAN/DRY/INTACT.
--- NOTE | 2018-12-18 23:00 | NUR ---
SITTING UP IN BED AWAKE AND ALERT. DENIES PAIN. REASSESSMENT COMPLETED PER FLOW SHEET. COMPLAINING OF SHORTNESS OF BREATH, PLACED ON BIPAP AT THIS TIME. 02 SAT 98% HOB ELEVATED TO 90 DEGREES AND ASSISTED WITH POSITIONING. REPORTS RELIEF. VSS.
--- NOTE | 2018-12-18 23:30 | NUR ---
NO FURTHER COMPLAINTS OF SHORTNESS OF BREATH. DENIES ANY COMPLAINTS AT THIS TIME.
[2018-12-19] VITALS (21 sets, daily range): BP systolic 82–103; BP diastolic 43–66
--- NOTE | 2018-12-19 01:00 | NUR ---
RESTING WITH EYES CLOSED. EASILY ROUSED AND ALERT. VSS. NO DISTRESS OBSERVED
[2018-12-19 05:29] LABS: BASOPHILS 0.1 % (0-2); EOSINOPHILS 1.3 % (0-7); HEMATOCRIT 28.9 % (42.0-54.0); IMMATURE GRANULOCYTES 1.7 % (0-5); LYMPHOCYTES 9.6 % (15-50); MCH 26.9 pg (26.0-34.0); MCHC 31.1 g/dL (31.0-37.0); MCV 86.5 fL (80.0-100.0); MEAN PLATELET VOLUME 9.4 fL (7.4-10.4); MONOCYTES 7.9 % (2-11); NEUTROPHILS 79.4 % (40-80); PLATELET COUNT 246 10x3/uL (130-400); RBC 3.34 10x6/uL (4.20-6.10); RDW 18.3 % (11.5-14.5); WBC 16.2 10x3/uL (4.8-10.8)
[2018-12-19 05:55] LABS: ANION GAP 18.3 mmol/L (8-16); CARBON DIOXIDE 23.8 mmol/L (21.0-32.0); CREATININE - SERUM 8.4 mg/dL (0.6-1.3); POTASSIUM - SERUM 4.1 mmol/L (3.5-5.1)
[2018-12-19 05:56] LABS: CALCIUM 6.6 mg/dL (8.5-10.1)
--- NOTE | 2018-12-19 07:45 | NUR ---
PT SITTING UP IN BED. BREAKFAST TRAY GIVEN. NO OTHER NEEDS
--- NOTE | 2018-12-19 09:30 | NUR ---
FAMILY AT BEDSIDE. LINE BLOOD DRAW DONE. ASSESSMENT COMPLETE. NO OTHER NEEDS AT THIS TIME.
--- NOTE | 2018-12-19 10:45 | NUR ---
DIALYSIS NURSE AT BEDSIDE.
--- NOTE | 2018-12-19 12:23 | NUR ---
PT PULLED UP IN BED. DIALYSIS NURSE AT BEDSIDE.
--- NOTE | 2018-12-19 14:40 | NUR ---
PT SITTING UP IN BED EATING. DIALYSIS FINISHED.
--- NOTE | 2018-12-19 16:49 | NUR ---
DRESSINGS CHANGED PER ORDERS. PT REPORTING NO PAIN. FAMILY AT BEDSIDE. NO OTHER NEEDS AT THIS TIME.
--- NOTE | 2018-12-19 18:35 | NUR ---
FAMILY IN ROOM. PT RESTING COMFORTABLY IN BED.
--- NOTE | 2018-12-19 19:30 | NUR ---
REPORT RECEIVED. RECEIVED PT IN BED. AWAKE AND ALERT. ORIENTED X4. SPEECH CLEAR AND APPROPRIATE. DENIES PAIN. SHIFT ASSESSMENT COMPLETED PER FLOWSHEET. TEMP 93.1 AXILLARY. BEAR HUGGER PLACED ON PT. SKIN COOL AND CLAMMY. COMPLAINS OF FEELING COLD. VSS. RESP EVEN AND UNLABORED. MONITORS CONNECTED TO PATIENT WITH ALARMS SET. SR UP X 2. CALL LIGHT IN REACH.
--- NOTE | 2018-12-19 20:00 | NUR ---
TEMP 94.5 AXILLARY. A&OX4. NO CHANGES.
--- NOTE | 2018-12-19 20:29 | NUR ---
I HAVE ORDERS TO PUT PT ON BIPAP IF CO2 < 45 PT ON BIPAP 09/13 40% ABG CO2 WAS 53
--- NOTE | 2018-12-19 20:30 | NUR ---
DR. CESPEDES HEALTH CARE ANALYST FOR DR GORAN BAKER.
--- NOTE | 2018-12-19 21:05 | NUR ---
RECEIVED CALL FROM DR. CESPEDES, UPDATED ON PATIENT CONDITION. NEW ORDERS RECEIVED. PT AWAKE AND ALERT INFORMED OF NEW ORDERS. VSS. NO DISTRESS OBSERVED. TEMP 94.4 AXILLARY . BEAR ARNULFOGGER CONTINUES ON PATIENT. SR UP X 2. CALL LIGHT IN REACH AND PT ABLE TO UTILIZE TO MAKE NEEDS KNOWN.
--- NOTE | 2018-12-19 22:20 | NUR ---
BLOOD CULTURES DRAWN AND SENT TO LAB
--- NOTE | 2018-12-19 23:19 | NUR ---
REASSESSMENT COMPLETED PER FLOW SHEET WITH NO DISTRESS OBSERVED. CALL LIGHT IN REACH. VSJoe. ADRIANA LUKE CONTINUES ON PATIENT.
[2018-12-20] VITALS (10 sets, daily range): BP systolic 85–104; BP diastolic 51–67
--- NOTE | 2018-12-20 01:00 | NUR ---
AWAKE AND ALERT. VSS. NO DISTRESS OBSERVED.
--- NOTE | 2018-12-20 02:00 | NUR ---
TEMP 95.9 AXILLARY
--- NOTE | 2018-12-20 03:00 | NUR ---
AWAKE AND ALERT. REASSESSMENT COMPLETED PER FLOW SHEET WITH NO CHANGES OBSERVED. VSS. CALL LIGHT IN REACH .
[2018-12-20 04:18] LABS: BASOPHILS 0.2 % (0-2); EOSINOPHILS 1.2 % (0-7); HEMATOCRIT 28.6 % (42.0-54.0); HEMOGLOBIN 8.9 g/dL (13.5-17.5); IMMATURE GRANULOCYTES 1.2 % (0-5); LYMPHOCYTES 7.3 % (15-50); MCHC 31.1 g/dL (31.0-37.0); MCV 86.7 fL (80.0-100.0); MEAN PLATELET VOLUME 9.2 fL (7.4-10.4); MONOCYTES 7.3 % (2-11); NEUTROPHILS 82.8 % (40-80); PLATELET COUNT 242 10x3/uL (130-400); RDW 18.4 % (11.5-14.5); WBC 14.7 10x3/uL (4.8-10.8)
[2018-12-20 04:28] LABS: ANION GAP 17.2 mmol/L (8-16); CARBON DIOXIDE 23.6 mmol/L (21.0-32.0); CREATININE - SERUM 7.3 mg/dL (0.6-1.3); POTASSIUM - SERUM 3.8 mmol/L (3.5-5.1)
--- NOTE | 2018-12-20 05:00 | NUR ---
AWAKE AND ALERT. DENIES PAIN. SR UP X 2. CALL LIGHT IN REACH.
--- NOTE | 2018-12-20 07:50 | NUR ---
SHIFT REPORT RECEIVED. AA&O X 4. PULLED UP AND REPOSITIONED FOR COMFORT. DENIES HAVING PAIN AT THIS TIME. RLE BKA WITH DRESSING CDI. DRESSING NOTED ON LLE CDI. SCABS AND SORES NOTED ON L-FOOT. HAS CVL ON L-SUBCLAVIAN S.L. 20G PIV ON RIGHT FOREARM SL. MICHAEL SIZE PRESSURE SORE NOTED ON COCCYX OPEN TO AIR. ON 2L OF 02 VIA OXYMIZER. AIR OVERLAY MATTRESS IN PLACE. ON CONTACT ISOLATION. SHIFT ASSESSMENT COMPLETED. NO FURTHER NEEDS. WILL CONTINUE TO MONITOR.
--- NOTE | 2018-12-20 09:30 | NUR ---
AM MEDS GIVEN. FAMILY AT BEDSIDE. PT SAT UP ON BEDSIDE AND DANGLED FOR A FEW MINUTES. PULLED UP AND REPOSITIONED FOR COMFORT. NO FURTHER NEEDS. WILL CONTINUE TO MONITOR.
--- NOTE | 2018-12-20 09:55 | NUR ---
NUTRITION F/U PT ON REG PUREED DIET AT THIS TIME. HAS ORDERS TO TRANSFER TO FLOOR. WILL CONTINUE TO PROVIDE DIET, HONOR FOOD PREFERENCES. RD FOLLOWING
--- NOTE | 2018-12-20 10:48 | NUR ---
SMALL AMOUNT OF STOOL NOTED AT THIS TIME. PERICARE PROVIDED. PARTIAL LINEN CHANGE PROVIDED. PULLED UP AND REPOSITION. PT HAVING A HARD TIME FINDING A COMFORTABLE SPOT. NO FURTHER NEEDS. WILL CONTINUE TO MONITOR.
--- NOTE | 2018-12-20 13:23 | NUR ---
PULLED UP AND REPOSITIONED. RESTING ON RIGHT SIDE. DID NOT EAT MUCH OF HIS LUNCH. DENIES OTHER NEEDS AT THIS TIME. WILL CONTINUE TO MONITOR.
--- NOTE | 2018-12-20 14:41 | NUR ---
REPOSITIONED FOR COMFORT. DRESSING CHANGED ON R-BKA USED XEROFORM, 4X4, ABD, KERLEX AND MARIANELA BANDAGE. DRESSING CHANGED ON LLE. XEROFORM, 4X4, AND KERLEX USED. PT TOLERATED WELL. TRAPEZE BAR PLACED OVER HOB TO HELP PT BE ABLE TO REPOSITION SELF. NO FURTHER NEEDS AT THIS TIME. WILL CONTINUE TO MONITOR.
--- NOTE | 2018-12-20 15:10 | NUR ---
PULLED UP IN BED AND REPOSITIONED FOR COMFORT.
--- NOTE | 2018-12-20 15:36 | NUR ---
PULLED UP AND REPOSITIONED FOR COMFORT. RESTING ON LEFT SIDE.
--- NOTE | 2018-12-20 15:47 | NUR ---
CALL LIGHT ON. PULLED UP AND REPOSITIONED FOR COMFORT. SITTING UP IN BED. HAS DIFFICULT TIME LAYING HOB LESS THAN 45 DEGREES.
--- NOTE | 2018-12-20 16:01 | NUR ---
ATTEMPTED TO CALL REPORT. RECEIVING NURSE UNABLE TO TAKE CALL AT THIS TIME. WILL RETURN CALL SOON SHE CAN.
--- NOTE | 2018-12-20 16:16 | NUR ---
PT WILL BE TRANSFERRING TO ROOM 2105. REPORT CALLED TO [place].
--- NOTE | 2018-12-20 17:00 | NUR ---
TRANSFERRED TO ROOM 2106 VIA BED. PERSONAL BELONGINGS SENT WITH PT. SISTER AT BEDSIDE. CHART DELIVERED TO WEAVING MACHINE OPERATOR. RECEIVING STAFF MADE AWARE OF PT ARRIVAL.
--- NOTE | 2018-12-20 17:23 | NUR ---
GREETED THE PATIENT, AND HIS SISTER. PATIENT INSTRUCTED ON PATIENT SAFETY AND TOLD NOT TO GET UP WITHOUT HELP. CALL LIGHT IN REACH
--- NOTE | 2018-12-20 19:51 | NUR ---
RESUMED CARE OF PT, LYING IN BED RESPIRATIONS EVEN AND UNLABORED ON BIPAP. FAMILY AT BEDSIDE. REPOSITIONED FOR COMFORT. CALL LIGHT IN REACH. SEE NURSE ASSESSMENT.
--- NOTE | 2018-12-20 20:06 | NUR ---
NOT ACTING ACCORDINGLY WITH BASELINE, SISTER REPORTS HE IS NORMALLY ALERT AND ORIENTED. WON'T KEEP HIS BIPAP ON, PICKING AT PD CATH AND IV. CALL IN TO RENALS, AWAITING CALL BACK.
--- NOTE | 2018-12-20 20:39 | NUR ---
ABG OBTAINED AND RENALS PAGED AWAITING CALL BACK.
--- NOTE | 2018-12-20 21:31 | NUR ---
CALL BACK FROM CHANTEL CRAWFORD AND NEW ORDERS RECEIVED
--- NOTE | 2018-12-20 23:10 | NUR ---
FSBS OBTAINED, REMAINS RESTLESS. HANDS ARE CLENCHED INTO ONE ANOTHER, DIFFICULT TO GET A FINGER TO OBTAIN FSBS. SISTER AT BEDSIDE, REPOSITIONED FOR COMFORT
[2018-12-21] VITALS (65 sets, daily range): BP systolic 83–115; BP diastolic 36–73
--- NOTE | 2018-12-21 00:53 | NUR ---
REPOSITIONED IN BED, RESTING MORE COMFORTABLY. DOES NOT APPEAR TO BE MESSING WITH BIPAP OR PD CATH. SISTER REMAINS AT BEDSIDE, CALL LIGHT IN REACH.
[2018-12-21 06:18] LABS: CREATININE - SERUM 8.1 mg/dL (0.6-1.3)
[2018-12-21 06:30] LABS: HEMATOCRIT 30.5 % (42.0-54.0); HEMOGLOBIN 9.5 g/dL (13.5-17.5); MCH 27.5 pg (26.0-34.0); MCHC 31.1 g/dL (31.0-37.0); MCV 88.4 fL (80.0-100.0); MEAN PLATELET VOLUME 9.8 fL (7.4-10.4); PLATELET COUNT 314 10x3/uL (130-400); RBC 3.45 10x6/uL (4.20-6.10); RDW 18.7 % (11.5-14.5); WBC 23.8 10x3/uL (4.8-10.8)
[2018-12-21 06:55] LABS: ANION GAP 21.4 mmol/L (8-16); POTASSIUM - SERUM 4.4 mmol/L (3.5-5.1)
[2018-12-21 06:59] LABS: CALCIUM 6.7 mg/dL (8.5-10.1)
--- NOTE | 2018-12-21 07:10 | NUR ---
INITIAL ROUNDING ON THE PATIENT, PATIENT IS CONFUSED AND DISORIENTATED. HE IS PULLING AT HIS BIPAP MASK, SCOOTING DOWN IN THE BED, REACHING FOR THINGS, PULLING AT CHEST HEMASPLIT. HAMMERER RN REPORTS THE PATIENT HAS BEEN LIKE THIS ALL NIGHT. ATIVAN ORDER WAS GIVEN TWO TIMES ON HAMMERER PER RN REPORT. DR CESPEDES MADE ROUNDS AND ORDERED THE PATIENT BE TRANSFERRED BACK TO ICU NOW, STATING THE PATIENT "WAS NOT LIKE THIS BEFORE". PATIENT TRANSFERRED TO ROOM 2310, BEDSIDE REPORT GIVEN
[2018-12-21 07:32] LABS: LYMPHOCYTES 11 % (15-50); MONOCYTES 7 % (2-11); NEUTROPHILS 77 % (40-80); PLATELET ESTIMATE NORMAL
--- NOTE | 2018-12-21 07:35 | NUR ---
PT CONTINUES TO PULL OFF BIPAP MASK [facility] ON ATIVAN
--- NOTE | 2018-12-21 08:08 | NUR ---
RECEIVED PATIENT FROM FLOOR AT THIS TIME. HOOKED UP TO MONITORS AND BIPAP PER ORDERS. VSS STABLE. PLACED RESTRAINTS TO KEEP FROM PULLING AT LINES. PT NOT ORIENTED TO ANYTHING. WILL CHECK FOR ORDERS AND CONTINUE TO MONITOR
--- NOTE | 2018-12-21 08:51 | NUR ---
PAGERachel. DR. ZIMMER AND PLACED ADRIANA LUKE ON PT.
--- NOTE | 2018-12-21 09:39 | NUR ---
DR. SCHUSTER NOTIFIED OF CONSULT BY ARIES.
--- NOTE | 2018-12-21 10:19 | NUR ---
ECHO COMPLETED AT THIS TIME. VSS ON DOBUTAMINE DRIP AT 2.5MCG/MIN
--- NOTE | 2018-12-21 10:42 | NUR ---
OBTAINED URINE SAMPLE VIA IN AND OUT CATH. 250 CC URINE DRAINED. DIALYSIS NURSE SETTING UP IN ROOM
--- NOTE | 2018-12-21 11:06 | NUR ---
HOOKED UP PD TO INSTILL FLUID THEN DRAIN IN ORDER TO OBTAIN SPECIMEN FOR CULTURE BUT FLUID WILL NOT DRAIN INTO CATHETER BECAUSE IT IS CLOGGED. WILL NOTIFY DR. ZIMMER.
[2018-12-21 12:27] LABS: APPEARANCE CLOUDY (CLEAR); COLOR YELLOW (YELLOW)
[2018-12-21 12:28] LABS: BILIRUBIN NEGATIVE (NEGATIVE); GLUCOSE 100 mg/dL (NEGATIVE); KETONE SMALL mg/dL (NEGATIVE); NITRITE NEGATIVE (NEGATIVE); PROTEIN 3+ mg/dL (NEGATIVE); UROBILINOGEN NORMAL (NORMAL)
[2018-12-21 12:29] LABS: AMORPHOUS SEDIMENT <1+ /lpf (NONE SEEN); BACTERIA MODERATE /hpf (NONE SEEN); EPITHELIAL CELLS OCC /hpf (0-5); MUCUS <1+ /lpf (NONE SEEN); WHITE CELLS - URINE OCC /hpf (0-5)
[2018-12-21 12:50] LABS: BASOPHILS 0.1 % (0-2); EOSINOPHILS 0.1 % (0-7); HEMATOCRIT 28.7 % (42.0-54.0); IMMATURE GRANULOCYTES 1.3 % (0-5); LYMPHOCYTES 4.8 % (15-50); MCH 27.2 pg (26.0-34.0); MCHC 31.4 g/dL (31.0-37.0); MCV 86.7 fL (80.0-100.0); MONOCYTES 9.5 % (2-11); NEUTROPHILS 84.2 % (40-80); PLATELET COUNT 287 10x3/uL (130-400); RBC 3.31 10x6/uL (4.20-6.10); RDW 18.5 % (11.5-14.5)
--- NOTE | 2018-12-21 13:24 | NUR ---
DIALYSIS FINISHED. VSS. REMOVED 2 LITERS.
--- NOTE | 2018-12-21 13:38 | NUR ---
SPOKE TO DR. ZIMMER ABOUT PD CATHETER CLOG. OBTAINED ORDER FOR TPA
--- NOTE | 2018-12-21 15:00 | NUR ---
CHANGED DRESSING TO RIGHT LEG ORDERED. FLOATED HEALS AND TURNED PATIENT TO LEFT SIDE. SACRAL DRESSING INTACT. VSS STABLE ON DOBUTAMINE DRIP AT 2.5 MCG.
--- NOTE | 2018-12-21 16:30 | NUR ---
PATIENT HAS SLUGGISH PUPILS AND IS LAYING IN BED MINIMALLY RESPONSIVE WITH EYES OPEN. OBTAINING ABG AND WILL CALL DR. ZIMMER WITH RESULTS AND ORDERS.
--- NOTE | 2018-12-21 17:05 | NUR ---
STATED LEVOPHED AT 5MCG. DOBUTAMINE AT 5MCG. BP 97/52
--- NOTE | 2018-12-21 18:41 | NUR ---
RESTARTED RESTRAINTS BECAUSE PATIENT PULLED OFF BIPAP
--- NOTE | 2018-12-21 19:12 | NUR ---
REPORT RECEIVED, CARE ASSUMED. PT IS RESTING IN BED WITH EYES CLOSED ON THE BIPAP AT THIS TIME. INITIAL ASSESSMENT COMPLETED, SEE FLOWSHEET FOR DETAILS. NO SIGNS OF ACUTE DISTRESS. WILL CONTINUE TO MONITOR.
--- NOTE | 2018-12-21 21:12 | NUR ---
PT IS RESTING IN BED ON THE BIPAP. CALLED AND SPOKE WITH DR EUGENE TO VERIFY ORDERS REGARDING PD DRAINAGE. SEE NURSING INSTRUCTION FOR DETAILS. NO SIGNS OF ACUTE DISTRESS. WILL CONTINUE TO MONITOR.
--- NOTE | 2018-12-21 23:15 | NUR ---
REASSESSMENT COMPLETED, SEE FLOWSHEET FOR DETAILS. PT IS LAYING IN BED STILL ON THE BIPAP. NO SIGNS OF ACUTE DISTRESS. WILL CONTINUE TO MONITOR.
[2018-12-22] VITALS (86 sets, daily range): BP systolic 79–120; BP diastolic 43–75
--- NOTE | 2018-12-22 00:45 | NUR ---
PD STARTED PER ORDER. FLUID IS SITTING. WILL ATTEMPT TO DRAIN AT 0145. PT IS AWAKE AND ALERT. STATED HE HAD A BM, PT WAS CLEANED UP AND PADS CHANGED. PT SEEMS MORE ORIENTED AT THIS TIME THEN HE HAS BEEN. WILL CONTINUE TO MONITOR.
[2018-12-22 00:57] LABS: HEMOGLOBIN 8.8 g/dL (13.5-17.5); MCHC 31.4 g/dL (31.0-37.0); MCV 89.2 fL (80.0-100.0); MEAN PLATELET VOLUME 8.3 fL (7.4-10.4); RBC 3.14 10x6/uL (4.20-6.10); RDW 19.2 % (11.5-14.5); WBC 17.2 10x3/uL (4.8-10.8)
--- NOTE | 2018-12-22 03:16 | NUR ---
REASSESSMENT COMPLETED, SEE FLOWSHEET FOR DETAILS. WAS ABOUT TO GET OFF 2300ML AFTER INSTILLING 500ML INTO PT'S PD CATH. PT WAS INCONTINENT OF BM. COMPLETE BED BATH AND LINEN CHANGE PERFORMED. NO SIGNS OF ACUTE DISTRESS. WILL CONTINUE TO MONITOR.
[2018-12-22 04:29] LABS: NEUT - BF 28 %
[2018-12-22 04:31] LABS: EOS BF 4 %; MESOTHELIALS BF 52 %
--- NOTE | 2018-12-22 05:16 | NUR ---
PT REPOSITIONED FOR COMFORT. NO SIGNS OF ACUTE DISTRESS. WILL CONTINUE TO MONITOR.
[2018-12-22 05:57] LABS: CARBON DIOXIDE 24.8 mmol/L (21.0-32.0); CREATININE - SERUM 7.3 mg/dL (0.6-1.3); POTASSIUM - SERUM 3.8 mmol/L (3.5-5.1)
[2018-12-22 06:01] LABS: CALCIUM 6.5 mg/dL (8.5-10.1)
--- NOTE | 2018-12-22 07:00 | NUR ---
PATIENT RESTING IN BED AWAKE AND ALERT ON BIPAP WITH STABLE VS. TOOK OFF BIPAP TO ASSESS ORIENTATION--OX4. WILL SERVE BREAKFAST. DOBUTAMINE AT 2.5MCG. BICARB AT 50ML/HR. LEVOPHED WEANED OFF. WILL CONTINUE TO MONITOR
--- NOTE | 2018-12-22 08:20 | NUR ---
ASSISTED PATIENT TO SIT UP IN SIDE OF BED. FAMILY IN ROOM. USING CHAIR TO HOLD SELF UP. VSS. PO MEDS GIVEN
--- NOTE | 2018-12-22 09:00 | NUR ---
ASSISTED BACK FROM SITTING ON SIDE OF BED TO LAYING DOWN. TURNED TO RIGHT SIDE. HOB ELEVATED 30 DEGREES. VSS. FAMILY IN ROOM.
--- NOTE | 2018-12-22 09:29 | NUR ---
NUTRITION F/U PT IN ISOLATION. REPORTS TOLERATING RENAL ADA DIET. STATES HIS INTAKE IS "OKAY." WILL CONTINUE TO PROVIDE DIET, MONITOR PT PROGRESS. RD FOLLOWING
--- NOTE | 2018-12-22 09:50 | NUR ---
PLACED PATIENT BACK ON BIPAP AT THIS TIME HE WAS BECOMING DROWSY AND BP DROPPED TO 79 SYSTOLIC. INCREASED DOBUTAMINE DRIP FROM 2.5 MCG TO 5 MCG/MIN. BP RESPONDED TO APPROPRIATE LEVELS. WILL CONTINUE TO MONITOR
--- NOTE | 2018-12-22 10:00 | NUR ---
INSTILLED 500 CC OF 2.5 PD FLUID INTO PATIENT PER ORDERS FOR A LAB CULTURE. WILL DRAIN AT 1100.
--- NOTE | 2018-12-22 11:00 | NUR ---
SET PD CATHETER TO DRAIN IN DRAINAGE BAG AND ALSO OBTAINED FLUID SPECIMEN AND SENT TO LAB. VSS. PT ON BIPAP AND DOBUTAMINE AT 5MCG/MIN. WILL CONTINUE TO MONITOR.
--- NOTE | 2018-12-22 12:17 | EC ---
PATIENT:RYANN DUVALL DATE OF SERVICE: 12/07/18 SEX: M MEDICAL RECORD: [id number] DATE OF : 62 LOCATION:[place] [address] AGE OF PATIENT: 58 ADMISSION DATE: 12/07/18 REFERRING PHYSICIAN: INTERPRETING PHYSICIAN: GIGI SALMON MD ECHOCARDIOGRAM REPORT ECHO CHARGES 5 ECHO LIMITED Date: 12/21/18 CLINICAL DIAGNOSIS: REASSESS FOR ENDOCARDITIS ECHOCARDIOGRAPHIC MEASUREMENTS (adult normal given) AC root (d.<3.7cm) 3.4 cm LV Septum d (<1.2 cm> 0.9 cm Valve Excursion 3.6 cm LV Septum (systole) 1.2 cm Left Atria (s.<4.0cm> 5.3 cm LVPW d(<1.2cm) 1.2 cm RV (d.<2.3cm) 6.1 cm LVPW (sytole) 1.8 cm LV diastole(<5.6CM) 4.0 cm MV E-F(>70mm/sec) cm LV systole 4.4 cm LVOT Diameter 2.2 cm MV exc.(>10mm) cm Est.ejection fraction (50-75%) % DOPPLER: LVIT cm/sec A 35.0 cm/sec E 65.0 cm/sec LA cm/sec RVSP 49 mmHg LVOT 62.0 cm/sec AOP1/2T m/s Asc. Ao 248 cm/sec RVOT 44.0 cm/sec RA cm/sec PA 40.0 cm/sec AV Gradient Peak 25.0 mmHg AV Mean 12.0 mmHg AV Area 0.7 cm MV Gradient Peak 3.0 mmHg MV Mean 1.1 mmHg MV Area cm COMMENTS: Glue Machine Operator: 2 EARLINE FONSECA Harness Maker: 3 Dr. Valdez TAPE# PACS Pericardial Effusion N DATE OF SERVICE: Adequate 2-D echo, color flow and spectral Doppler, and M-mode. LVH is present. LV internal dimensions are dilated at 4 cm. LV shows mild hypokinesis. Overall, LV function appears to be in lower limits of normal at 50%. Aortic valve sclerosis without stenosis by Doppler interrogation. Left atrium is normal at 3.6 cm. Mitral valve is thickened. [id number] MR. Right-sided chamber is grossly normal. Lgwe-tt-[id number] TR. No interval improvement in LV systolic function and decrease in MR and TR. ECHOCARDIOGRAM REPORT [id number] ELOINARYANN GOGO TRANSINT:[id number] Voice Confirmation ID: [id number] DOCUMENT ID: [id number] GIGI SALMON MD at 1217 CC: [id number] DICTATION DATE: 12/21/18 1501 MEDICAL ASSISTANT: 12/21/18 1613 ADM IN [facility] [address] [place] [address]
--- NOTE | 2018-12-22 12:30 | NUR ---
950 DRAINED OUT OF PD CATH. 500 INSTILLED. BALANCE OF -450.
--- NOTE | 2018-12-22 13:29 | NUR ---
OBTAINED NEW DIET TRAY WITH NECTAR THICK LIQUIDS AND GAVE TO PATIENT. REMOVED BIPAP AND PLACED ON HIGH FLOW NC AT 8 LITERS. FAMILY IN ROOM FEEDING PATIENT.
--- NOTE | 2018-12-22 14:15 | NUR ---
PATIENT HAD LARGE INCONTINENT BM. NURSES CLEANED PATIENT AND CHANGED ALL LINENS.
--- NOTE | 2018-12-22 14:43 | NUR ---
CHANGED DRESSINGS TO LEFT LEG AND RIGHT STUMP. PLACED PATIENT BACK ON BIPAP PER REQUEST.
--- NOTE | 2018-12-22 16:25 | NUR ---
TOOK PATIENT OFF BIPAP AND PLACED BACK ON HIGH FLOW NC 8 LITERS PER REQUEST. VSS.
--- NOTE | 2018-12-22 17:05 | NUR ---
TITRATED DOBUTAMINE TO 4MCG/MIN. BP STABLE. PT AA AND ORIENTED. GAVE NEW SUCTION TUBING. FAMILY IN ROOM.
--- NOTE | 2018-12-22 18:30 | NUR ---
Dialysis Coordinator: Toribio [facility] Home PD patient. However, patient was switched to HD this hospitalization. Will continue to monitor for orders regarding planned modality at discharge from hospital. DEAN ROJAS.
--- NOTE | 2018-12-22 19:00 | NUR ---
REPORT RECEIVED ANDF ASSESSMENT COMPLETED. SEE FLOWSHEET FOR FULL DETAILS. VSS. WILL MONITOR THROUGHOUT SHIFT.
[2018-12-23] VITALS (58 sets, daily range): BP systolic 86–125; BP diastolic 49–93
[2018-12-23 05:48] LABS: BASOPHILS 0.2 % (0-2); EOSINOPHILS 1.3 % (0-7); HEMATOCRIT 26.4 % (42.0-54.0); HEMOGLOBIN 8.3 g/dL (13.5-17.5); IMMATURE GRANULOCYTES 0.3 % (0-5); LYMPHOCYTES 10.7 % (15-50); MCH 27.5 pg (26.0-34.0); MCHC 31.4 g/dL (31.0-37.0); MCV 87.4 fL (80.0-100.0); MEAN PLATELET VOLUME 8.7 fL (7.4-10.4); MONOCYTES 10.6 % (2-11); NEUTROPHILS 76.9 % (40-80); RBC 3.02 10x6/uL (4.20-6.10); RDW 18.8 % (11.5-14.5)
[2018-12-23 05:49] LABS: PLATELET COUNT 241 10x3/uL (130-400); WBC 12.1 10x3/uL (4.8-10.8)
[2018-12-23 06:14] LABS: ALBUMIN 1.2 g/dL (3.4-5.0); ANION GAP 14.8 mmol/L (8-16); BILIRUBIN - TOTAL 0.51 mg/dL (0.2-1.3); CARBON DIOXIDE 27.6 mmol/L (21.0-32.0); CREATININE - SERUM 7.9 mg/dL (0.6-1.3); MAGNESIUM - SERUM 2.1 mg/dL (1.8-2.4); PHOSPHOROUS 7.2 mg/dL (2.5-4.9); POTASSIUM - SERUM 3.4 mmol/L (3.5-5.1); PROTEIN - SERUM 5.4 g/dL (6.4-8.2)
[2018-12-23 06:15] LABS: CALCIUM 6.1 mg/dL (8.5-10.1)
--- NOTE | 2018-12-23 06:18 | NUR ---
CALCIUM LOW. CORRECTED CALCIUM 8.3.
--- NOTE | 2018-12-23 08:27 | NUR ---
PER RENAL GUIDANCE AND CONTROL SYSTEM ENGINEER TITRATE DOBUTAMINE TO KEEP A MAP ABOVE 60.
--- NOTE | 2018-12-23 10:18 | NUR ---
DRESSINGS TO LT AND RT LEGS CHANGED AT THIS TIME PER ORDERS. SCANT BLEEDING NOTED TO RT BKA SITE DURING DRESSING CHANGE. NO S/S INFECTION. WILL CONTINUE PLAN OF CARE.
--- NOTE | 2018-12-23 12:14 | NUR ---
PER DR KEARNEY, RESTART DOBUTAMINE AT 2.5 MCG SET RATE, DO NOT TRANSFER PT TO FLOOR, DC BICARB DRIP AFTER THIS BAG IS COMPLETE, KEEP BIPAP ON 3 HOURS AND OFF 3 HOURS. PT UP IN BED AWAKE AT THIS TIME. DENIES ANY NEEDS. FAMILY AT BEDSIDE, UPDATES PROVIDED. WILL CONTINUE PLAN OF CARE.
--- NOTE | 2018-12-23 14:44 | NUR ---
UP IN BED ON BIPAP AT THIS TIME. DENIES ANY NEEDS. NO ACUTE DISTRESS NOTED. CALL LIGHT IN REACH. WILL CONTINUE PLAN OF CARE.
--- NOTE | 2018-12-23 16:32 | NUR ---
BED BATH AND TOTAL LINEN CHANGE PROVIDED AT THIS TIME. ALSO SMALL LIQUID BOWEL MOVEMENT NOTED. JOMAR CARE PROVIDED. PT UP IN BED VISITING WITH FAMILY. NO ACUTE DISTRESS NOTED. WILL CONTINUE PLAN OF CARE.
--- NOTE | 2018-12-23 17:32 | NUR ---
UP IN BED VISITING WITH FAMILY AT THIS TIME. DENIES ANY NEEDS.NO ACUTE DISTRESS NOTED. FAMILY AT BEDSIDE. WILL CONTINUE PLAN OF CARE.
--- NOTE | 2018-12-23 18:01 | NUR ---
INCONTINENT BOWEL MOVEMENT NOTED AT THIS TIME, DIARRHEA, LIQUID BROWN. CDT SPECIMEN SENT TO LAB. JOMAR CARE PROVIDED, PARTIAL LINEN CHANGE PROVIDED. NO ACUTE DISTRESS NOTED. WILL CONTINUE PLAN OF CARE.
[2018-12-24] VITALS (36 sets, daily range): BP systolic 101–122; BP diastolic 57–77
[2018-12-24 06:39] LABS: BASOPHILS 0.1 % (0-2); EOSINOPHILS 1.8 % (0-7); HEMATOCRIT 26.3 % (42.0-54.0); HEMOGLOBIN 8.1 g/dL (13.5-17.5); IMMATURE GRANULOCYTES 0.4 % (0-5); LYMPHOCYTES 11.7 % (15-50); MCH 27.3 pg (26.0-34.0); MCHC 30.8 g/dL (31.0-37.0); MCV 88.6 fL (80.0-100.0); MEAN PLATELET VOLUME 9.4 fL (7.4-10.4); MONOCYTES 10.7 % (2-11); NEUTROPHILS 75.3 % (40-80); PLATELET COUNT 257 10x3/uL (130-400); RBC 2.97 10x6/uL (4.20-6.10); RDW 19.2 % (11.5-14.5); WBC 10.4 10x3/uL (4.8-10.8)
[2018-12-24 07:14] LABS: ANION GAP 13.4 mmol/L (8-16); BILIRUBIN - TOTAL 0.5 mg/dL (0.2-1.3); CARBON DIOXIDE 29.8 mmol/L (21.0-32.0); CREATININE - SERUM 6.3 mg/dL (0.6-1.3); POTASSIUM - SERUM 3.2 mmol/L (3.5-5.1); PROTEIN - SERUM 5.6 g/dL (6.4-8.2)
[2018-12-24 07:16] LABS: ALBUMIN 1.6 g/dL (3.4-5.0); CALCIUM 6.6 mg/dL (8.5-10.1)
--- NOTE | 2018-12-24 07:24 | NUR ---
INCONTINENT BOWEL MOVEMENT NOTED AT THIS TIME, DIARRHEA. TOTAL LINEN CHANGE PROVIDED. JOMAR CARE PROVIDED. NO ACUTE DISTRESS NOTED. WILL CONTINUE PLAN OF CARE.
--- NOTE | 2018-12-24 08:25 | NUR ---
INCONTINENT BOWEL MOVEMENT AT THIS TIME. JOMAR CARE PROVIDED. TOTAL LINEN CHANGE PROVIDED. PT UP IN BED EATING BREAKFAST WITH ASSIST FROM . NO ACUTE DISTRESS NOTED. WILL CONTINUE PLAN OF CARE.
--- NOTE | 2018-12-24 09:25 | NUR ---
INCONTINENT BOWEL MOVEMENT AT THIS TIME. LIQUID BROWN. JOMAR CARE PROVIDED. ALSO BUTTOCKS NOTED TO START HAVING SOME EXCORIATION, BUTT PASTE APPLIED AND RENAL ARTIFICIAL LIMB MAKER STATED OKAY TO ORDER MIKHAIL. NO ACUTE DISTRESS NOTED. PT ASSISTED TO TURN Q2H. WILL CONTINUE PLAN OF CARE.
--- NOTE | 2018-12-24 12:32 | NUR ---
DRESSINGS CHANGE PERFORMED TO LEGS AT THIS TIME. RT BKA SITE NOTED TO HAVE MORE REDNESS THAN WHAT WAS NOTICED YESTERDAY. ORTHO PHARMACY TECHNOLOGIST PAGED TO NOTIFY, DR PRADO STATED HE WOULD BE BY LATER TO SEE PT. WILL CONTINUE PLAN OF CARE.
--- NOTE | 2018-12-24 13:28 | NUR ---
CONTINENT BOWEL MOVEMENT NOTED, LIQUID SMALL BROWN. JOMAR CARE PROVIDED. PARTIAL LINEN CHANGE PROVIDED. NO ACUTE DISTRES NOTED. WILL CONTINUE PLAN OF CARE.
--- NOTE | 2018-12-24 15:24 | NUR ---
CONTINENT BOWEL MOVEMENT NOTED AT THIS TIME VIA BEDPAN. JOMAR CARE PROVIDED. NO ACUTE DISTRESS NOTED. WILL CONTINUE PLAN OF CARE.
--- NOTE | 2018-12-24 17:26 | NUR ---
UP ON SIDE OF BED EATING SUPPER AT THIS TIME. NO ACUTE DISTRESS NOTED. PT ASSISTED TO SIT ON SIDE OF BED VIA MAX ASSIST. FAMILY IN ROOM. CALL LIGHT IN REACH. WILL CONTINUE PLAN OF CARE.
--- NOTE | 2018-12-24 19:45 | NUR ---
ASSISTED PT IN REPOSITIONING, AT BEDSIDE, PT DENIES ACUTE DISTRESS OR PAIN, VSS, SHIFT ASSESSMENT COMPLETE PER FLOW SHEET, WILL CONTINUE TO ASSESS
--- NOTE | 2018-12-24 21:00 | NUR ---
PT RESTING IN BED, DENIES PAIN OR NEEDS AT THIS TIME, REPOSITIONED FOR COMFORT, BIPAP ON PER ORDERS, VSS, MEDS GIVEN PER MAR, WILL CONTINUE TO MONITOR
--- NOTE | 2018-12-24 23:00 | NUR ---
REASSESSMENT COMPLETE PER FLOW SHEET, NO ACUTE CHANGE, AAOx4, PT DENIES PAIN OR NEEDS, VSS, WILL CONTINUE TO MONITOR
[2018-12-25] VITALS (23 sets, daily range): BP systolic 103–145; BP diastolic 48–113
--- NOTE | 2018-12-25 01:00 | NUR ---
PT SLEEPING, BIPAP PLACED ON PT WITH SETTINGS PER RT, PT TOLLERATING AT THIS TIME, NO S/S OF ACUTE DISTRESS, VSS, WILL CONT TO MONITOR
--- NOTE | 2018-12-25 03:00 | NUR ---
REASSESSMENT PER FLOW SHEET, NO ACUTE CHANGE, PT DENIES PAIN OR NEEDS AT THIS TIME, VSS, REPOSITIONED FOR COMFORT, WILL CONT TO ASSESS
[2018-12-25 04:52] LABS: BASOPHILS 0.3 % (0-2); EOSINOPHILS 2.5 % (0-7); HEMATOCRIT 27.2 % (42.0-54.0); HEMOGLOBIN 8.2 g/dL (13.5-17.5); IMMATURE GRANULOCYTES 0.5 % (0-5); LYMPHOCYTES 10.7 % (15-50); MCHC 30.1 g/dL (31.0-37.0); MCV 89.5 fL (80.0-100.0); MEAN PLATELET VOLUME 8.8 fL (7.4-10.4); MONOCYTES 9.9 % (2-11); NEUTROPHILS 76.1 % (40-80); PLATELET COUNT 225 10x3/uL (130-400); RBC 3.04 10x6/uL (4.20-6.10); RDW 19.5 % (11.5-14.5)
[2018-12-25 05:08] LABS: ANION GAP 14.4 mmol/L (8-16); BILIRUBIN - TOTAL 0.53 mg/dL (0.2-1.3); CARBON DIOXIDE 27.9 mmol/L (21.0-32.0); CREATININE - SERUM 6.9 mg/dL (0.6-1.3); PHOSPHOROUS 5.6 mg/dL (2.5-4.9); POTASSIUM - SERUM 3.3 mmol/L (3.5-5.1); PROTEIN - SERUM 5.4 g/dL (6.4-8.2); VANCOMYCIN - RANDOM 16.7 ug/mL (10.0-20.0)
[2018-12-25 05:09] LABS: CALCIUM 6.3 mg/dL (8.5-10.1)
--- NOTE | 2018-12-25 08:46 | NUR ---
0700 AWAKE ALERT REPOSITIONED IN BED WITH ASSIST X 2 AND USE OF TRAPEZE. VOICES NO COMPLAINTS ASSESSMENT COMPLETE
--- NOTE | 2018-12-25 09:48 | NUR ---
NUTRITION F/U PT REMAINS IN ISOLATION. REPORTS "MODERATE" INTAKE DIABETIC DIET. ENCOURAGED PO INTAKE, PT VOICED UNDERSTANDING. RD FOLLOWING
--- NOTE | 2018-12-25 09:48 | NUR ---
0900 DR BELL ROUNDING ON PATIEN. REPOSITIONED TO KEEP FOOT FROM CONTACT WITH FOOT OF BED. ATTEMPTED TO REMOVE FOOTBOARD UNSUCCESSFULLY
--- NOTE | 2018-12-25 11:23 | NUR ---
Dialysis Coordinator: Notified by Temi Meier APN, patient will need HD at discharge. (Admitted on PD.) Will update records and reach out to the [facility] clinic regarding a tentative backup HD schedule. Discharge date unknown at this time, as patient is still in ICU. Will be following for updates. DEAN ROJAS.
--- NOTE | 2018-12-25 12:27 | NUR ---
OT NOTE: PT DOING BETTER TODAY. MOD/MAX ASSIST WITH SUPINE TO SIT; STATIC SITTING WITH SBA.. PT WANTING TO SIT UP LONG POSSIBLE HE STATES THAT HE IS VERY TIRED OF LIEING IN THE BED. ABLE TO DO EXS WHILE SITTING ON EDGE OF BED; ABLE TO WASH FACE AND HANDS WITH CLOTH AND SET UP; ABLE TO HOLD CUP AND DRINK WITHOUT DIFFICULTY. VISH ZHONG, OTR/L
--- NOTE | 2018-12-25 19:05 | NUR ---
PT TRYING TO CLIMB OOB, WANTS TO GO HOME, APEARS CONFUSED BUT ABLE TO ANSWER QUESTIONS, REORIENTED PT, ASSISTED BACK UP IN BED, PLACED ON BIPAP, VSS, WILL CONT TO MONITOR
--- NOTE | 2018-12-25 19:25 | NUR ---
PT CONFUSED AND PULLING OFF BIPAP, BIPAP MASK BROKEN FROM PT PULLING, REORIENTED PT TO SITUATION AND EXPLAINED BIPAP USE, PLACED PT BACK ON HIGH FLOW NC, RT AT BEDSIDE, WILL CONTINUE TO MONITOR, WILL NOTIFY PHYSICIAN FOR ORDERS IF PT CONTINUES
--- NOTE | 2018-12-25 20:30 | NUR ---
PLACED NEW BIPAP ON PT, LOC DECREASED, RT TO GET ABG'S, AT BEDSIDE
[2018-12-26] VITALS (24 sets, daily range): BP systolic 99–136; BP diastolic 58–97
[2018-12-26 05:27] LABS: BASOPHILS 0.2 % (0-2); EOSINOPHILS 0.2 % (0-7); HEMATOCRIT 29.9 % (42.0-54.0); IMMATURE GRANULOCYTES 0.8 % (0-5); LYMPHOCYTES 8.8 % (15-50); MCH 27.4 pg (26.0-34.0); MCHC 30.1 g/dL (31.0-37.0); MCV 91.2 fL (80.0-100.0); MEAN PLATELET VOLUME 9.2 fL (7.4-10.4); MONOCYTES 6.5 % (2-11); NEUTROPHILS 83.5 % (40-80); PLATELET COUNT 247 10x3/uL (130-400); RBC 3.28 10x6/uL (4.20-6.10); RDW 19.6 % (11.5-14.5)
[2018-12-26 05:37] LABS: WBC 12.9 10x3/uL (4.8-10.8)
[2018-12-26 05:51] LABS: ALBUMIN 2.4 g/dL (3.4-5.0); BILIRUBIN - TOTAL 0.65 mg/dL (0.2-1.3); CARBON DIOXIDE 26.1 mmol/L (21.0-32.0); CREATININE - SERUM 7.4 mg/dL (0.6-1.3); PROTEIN - SERUM 6.1 g/dL (6.4-8.2); VANCOMYCIN - RANDOM 14.6 ug/mL (10.0-20.0)
--- NOTE | 2018-12-26 06:00 | NUR ---
MEDS GIVEN PER MAR, PT CONFUSED, DOESNT REMEMBER WHY OR WHERE HE IS, PT BETTER WITH BIPAP USE BUT STAYS CONFUSED, REORIENTED MULTIPLE TIMES
[2018-12-26 06:11] LABS: ANION GAP 16.7 mmol/L (8-16); POTASSIUM - SERUM 3.8 mmol/L (3.5-5.1)
[2018-12-26 06:14] LABS: CALCIUM 6.6 mg/dL (8.5-10.1)
--- NOTE | 2018-12-26 06:32 | NUR ---
AT BEDSIDE, UPDATE GIVEN, NO QUESTIONS FROM , WILL CONTINUE TO MONITOR
--- NOTE | 2018-12-26 11:00 | NUR ---
REASSESSMENT COMPLETE PER FLOW SHEET. VSS. PT INCREASINGLY LETHARGIC REFUSED LUNCH AT THIS TIME. BIPAP APPLIED AT BEDSIDE GIVE UDPATE
--- NOTE | 2018-12-26 11:40 | NUR ---
OT NOTE: PT MUCH MORE CONFUSED COMPAIRED TO YESTERDAY. PT WITH INCREASED DIFFICULTY FOLLOWING SIMPLE COMMANDS. UNABLE TO FOLLOW L/R INSTRUCTIONS. OCCASSIONAL CATATONIC-LIKE EPISODES WHEN ASKED TO RAISE ARM. ASKED PT TO RAISE R UE, AND AFTER SEVERAL ATTEMPTS HE WAS ABLE TO DO SO, BUT KEPT R ARM UP IN AIR AFTER CONTINUAL INSTRUCTION TO LET IT DOWN. INCREASED DIFFICULTY WITH L UE..SEEMS MORE APRAXIC IN L THAN R. UNABLE TO DEMONSTRATE USE OF COMB, BRUSH, OR TOOTHBRUSH. ORIENTED TO TOWN, BUT NOT ORIENTED TO FACILITY, DAY, DATE, ETC. PT QUESTIONING WHY HE IS HERE. COULD NOT REMEMBER PREVIOUS EVENTS OF THE DAY, INCLUDING MEALS, ETC.. VISH ZHONG, OTR/L
--- NOTE | 2018-12-26 12:30 | NUR ---
AND SISTER AT BEDSIDE CONCERNED WITH LOC. PT SLEEPING REPOSITIONED UP IN BED WOKE UP TO TOUCH, REPOSITIONED ON L SIDE. NEEDS MET.
--- NOTE | 2018-12-26 14:16 | NUR ---
AT BEDSIDE, CONCERNED REGAURDING NO DIALYSIS TODAY, CALLED [facility], STATED DR BELL STATED TO HOLD DIAYLSIS UNTIL TOMMOROW R/T BRUISING AND HARDENING AROUND L WRIST FISTULA.
--- NOTE | 2018-12-26 15:00 | NUR ---
REASSESSMENT COMPLETE PER FLOW SHEET. VSS. NO NEW FINDINGS WILL CONTINUE TO MONTIOR
--- NOTE | 2018-12-26 15:45 | NUR ---
DR EMERY AT BEDSIDE SPOKE TO FAMILY AT GREAT LENGTH ALL QUESTIONS ANSWERED. , PT SISTER, AND MOTHER FAMILY DYNAMICS POOR. MADAI AGGRESIVELY STATED IN DR PLASCENCIA FACE SHE WAS NOT TO BLAME AND WE WERENT GIVING HIM THE CARE HE NEEDED, STORMED PAST DR EMERY, RAN OUT OF NUIT REFUSING TO LISTEN TO PT CARE PLAN TEACHING. PT SISTER AND MOTHER STATED THAT MADAI WOULD NOT LET THEM (SISTER AND MOTHER) SEE RYANN AT HOME AND THEY WERE UNAWARE OF THE BAD CARE HE WAS RECIEVING. DR EMERY EXPLAINED AT GREAT LENGTH THAT THE PT RYANN WAS "AT GREAT FAULT FOR DECLINING HEALTH AND CONDITION" R/T BEING ABLE TO VOICE OWN CONCERNS AND NEEDS. PT SISTER STATED MADAI FEELS AT FAULT RIGHT NOW FOR RYANN'S DECLINING HEALTH. ATTEMPT TO GET MADAI FROM WAITING ROOM TO SPEAK AGAIN. NO LONGER HERE. WILL ATTEMPT AGAIN.
--- NOTE | 2018-12-26 17:00 | NUR ---
AT BEDSIDE. GIVEN UDPATE. ATE 25% DINNER.
[2018-12-26 17:23] LABS: CKMB 1.6 U/L (0.0-3.6)
[2018-12-26 17:25] LABS: TROPONIN-I < 0.017 ng/mL (0.000-0.060)
--- NOTE | 2018-12-26 23:00 | NUR ---
REASSESSMENT COMPLETE, PT ON BIPAP TOLLERATING WELL, WHEN OFF BIPAP PT GETS SOB QUICKLY, PT AAO ABLE TO MAKE NEEDS KNOWN, REPOSITIONED IN BED, COMPLETE DRSG CHANGE ON BLE PER ORDERS, VSS, NO ACUTE DISTRESS NOTED, WILL CONTINUE TO MONITOR
[2018-12-27] VITALS (24 sets, daily range): BP systolic 109–130; BP diastolic 34–87
--- NOTE | 2018-12-27 01:00 | NUR ---
PT REPOSITIONED IN BED FOR COMFORT, DENIES NEEDS OR PAIN, AAO, HOB ELEVATED, ON BIPAP AT ORDERED SETTINGS, VSS, NO FAMILY DURING VISITING HOURS,
[2018-12-27 05:04] LABS: BASOPHILS 0.1 % (0-2); EOSINOPHILS 0.3 % (0-7); HEMATOCRIT 27.7 % (42.0-54.0); HEMOGLOBIN 8.2 g/dL (13.5-17.5); IMMATURE GRANULOCYTES 0.7 % (0-5); MCH 26.9 pg (26.0-34.0); MCHC 29.6 g/dL (31.0-37.0); MCV 90.8 fL (80.0-100.0); MEAN PLATELET VOLUME 9.2 fL (7.4-10.4); MONOCYTES 6.2 % (2-11); NEUTROPHILS 85.7 % (40-80); PLATELET COUNT 221 10x3/uL (130-400); RBC 3.05 10x6/uL (4.20-6.10); RDW 19.9 % (11.5-14.5); WBC 11.3 10x3/uL (4.8-10.8)
[2018-12-27 05:36] LABS: ALBUMIN 2.4 g/dL (3.4-5.0); ANION GAP 20.7 mmol/L (8-16); BILIRUBIN - TOTAL 0.71 mg/dL (0.2-1.3); CARBON DIOXIDE 23.1 mmol/L (21.0-32.0); PHOSPHOROUS 6.9 mg/dL (2.5-4.9); POTASSIUM - SERUM 3.8 mmol/L (3.5-5.1); PROTEIN - SERUM 5.8 g/dL (6.4-8.2); VANCOMYCIN - RANDOM 21.8 ug/mL (10.0-20.0)
[2018-12-27 05:39] LABS: CALCIUM 6.5 mg/dL (8.5-10.1)
--- NOTE | 2018-12-27 07:07 | NUR ---
REPORT RECEIVED. ASSESSMENT COMPLETE PER FLOW SHEET. VSS. PT RESTING COMFORTABLY WILL CONTINUE TO MONITOR
--- NOTE | 2018-12-27 09:02 | NUR ---
NUTRITION F/U CHART REVIEWED, PT VISIT. REMAINS IN ISOLATION. PT REPORTS POOR PO INTAKE RECENT MEALS. AGREES TO NEPRO WITH MEALS. WILL PROVIDE. RD FOLLOWING
--- NOTE | 2018-12-27 09:20 | NUR ---
DR EMERY AT BEDSIDE GIVEN UDPATE
--- NOTE | 2018-12-27 11:00 | NUR ---
REASSESSMENT COMPLETE PER FLOW SHEET. VSS. NO NEW CHANGES WILL CONTINUE TO MONTIOR
--- NOTE | 2018-12-27 12:08 | NUR ---
FAMILY AT BEDSIDE GIVEN UDPATE
--- NOTE | 2018-12-27 13:00 | NUR ---
PT PLACED BACK ON BIPAP PER REQUEST
--- NOTE | 2018-12-27 14:20 | NUR ---
COMPLETE BB LINEN CHANGE ADM LARGE BM NOTED
--- NOTE | 2018-12-27 15:00 | NUR ---
REASSESSMENT COMPLETE PER FLOW SHEET. VSS. NO NEW CHANGES WILL CONTNIUE TO MONITOR
--- NOTE | 2018-12-27 17:37 | NUR ---
REFUSED SUPPER TRAY
--- NOTE | 2018-12-27 20:10 | NUR ---
AT BEDSIDE, UPDATE GIVEN
--- NOTE | 2018-12-27 20:39 | NUR ---
CALLED, UPDATE GIVEN ON PT, NO FURTHER AT THIS TIME
--- NOTE | 2018-12-27 20:53 | NUR ---
PT PLACED ON BEDPAN FOR THE 3RD TIME SINCE SHIFT STATRT, LIQUID BROWN STOOL NOTED, MED GIVEN PER DEC, VSS
--- NOTE | 2018-12-27 21:15 | NUR ---
ARISTEO KHAN WITH [facility] AT BEDSIDE, STARTING HD, PT FSBG 200MG/dL, WILL RECHECK AFTER AND CORRECT IF NEED
[2018-12-28] VITALS (24 sets, daily range): BP systolic 106–134; BP diastolic 61–91
--- NOTE | 2018-12-28 | NUR ---
DIALYSIS COMPLETE, CHANDA AMUSEMENT OR RECREATION CARD CHECKER NURSE STATED PULLED 3 LITERS, PT AAOx4, NO S/S OF DISTRESS, DENIES PAIN, VSS, WILL CONTINUE TO MONITOR, REPOSITIONED FOR COMFORT, TOLLERATING BIPAP
--- NOTE | 2018-12-28 05:00 | NUR ---
RIGHT AND LEFT LOWER EXTREMITY DRSGS CHANGED PER ORDERS, PT TOLLERATED WELL, ASSISTED BY RAPHAEL Hartman RN, VSS, PT AT BEDSIDE, UPDATE GIVEN, PT OFF BIPAP FOR BREIF PERIOD OF TIME AND TOLLERATED FOR 5-10 MIN THEN FELT LIGHT HEADED, PLACED BACK ON BIPAP,
[2018-12-28 05:14] LABS: BASOPHILS 0.2 % (0-2); EOSINOPHILS 1.8 % (0-7); HEMATOCRIT 26.9 % (42.0-54.0); HEMOGLOBIN 8.2 g/dL (13.5-17.5); IMMATURE GRANULOCYTES 0.5 % (0-5); MCH 27.2 pg (26.0-34.0); MCHC 30.5 g/dL (31.0-37.0); MCV 89.1 fL (80.0-100.0); MEAN PLATELET VOLUME 9.1 fL (7.4-10.4); MONOCYTES 8.7 % (2-11); NEUTROPHILS 80.8 % (40-80); RBC 3.02 10x6/uL (4.20-6.10); RDW 20.3 % (11.5-14.5)
[2018-12-28 05:15] LABS: PLATELET COUNT 175 10x3/uL (130-400)
[2018-12-28 05:25] LABS: ALBUMIN 2.5 g/dL (3.4-5.0); BILIRUBIN - TOTAL 0.63 mg/dL (0.2-1.3); CARBON DIOXIDE 26.5 mmol/L (21.0-32.0); CREATININE - SERUM 6.8 mg/dL (0.6-1.3); POTASSIUM - SERUM 3.5 mmol/L (3.5-5.1); PROTEIN - SERUM 5.5 g/dL (6.4-8.2)
[2018-12-28 05:35] LABS: CALCIUM 6.6 mg/dL (8.5-10.1)
--- NOTE | 2018-12-28 07:00 | NUR ---
REPORT RECEIVED. ASSESSMENT COMPLETE PER FLOW SHEET. VSS. NO NEW CHANGES PT RESTING COMFORTABLY WILL CONTINUE TO MONTIOR
--- NOTE | 2018-12-28 08:50 | NUR ---
AT BEDSIDE. PT ATE 30% BREAKFAST. PLACED BACK ON BIPAP PER REQUEST. DENIES FURTHER NEEDS.
--- NOTE | 2018-12-28 09:27 | NUR ---
DR EMERY AT BEDSIDE. NO NEW ORDERS.
--- NOTE | 2018-12-28 11:00 | NUR ---
REASSESSMENT COMPLETE PER FLOW SHEET. VSS. NO NEW CAHNGES WILL CONTINUE TO MONITOR
--- NOTE | 2018-12-28 11:50 | NUR ---
PT/OT AT BEDSIDE UPDATE GIVEN ATTEMPT TO GET OOB TO CHAIR, UNABLE TO TOLERATE STANDING POSITIONED. TOTAL LIFT OFF OF BED UNABLE TO MOVE FROM BED TO CHAIR. PT TOTAL BED CHANGE TO BARIATRIC BED WITH CHAIR SETTINGS. PT SAT UPRIGHT IN CHAIR POSITION FOR 1 HR. 1300 PT DEMANDED TO LAY DOWN. ASSISTED UP IN BED REPOSITIONED FOR COMFORT. DENIES NEEDS. FAMILY AT BEDSIDE.
--- NOTE | 2018-12-28 13:01 | NUR ---
FAMILY AT BEDSIDE. GIVEN LUNCH ATE 15%. DENIES NEEDS PLACED BACK ON BIPAP PER REQUEST
--- NOTE | 2018-12-28 13:08 | NUR ---
OT NOTE: TMT PERFORMED TODAY WITH ASSIST OF PHYS THERAPY DUE TO ATTEMPT TO TRANSFER PT TO CHAIR. PERFORMED BED MOB INCLUDING ROLLING FROM SIDE TO SIDE WITH MIN ASSIST AND USE OF BED RAILS; SUPINE TO SIT WITH MAX ASSIST; AFTER CLEANING PT FROM BM AND SITTING UP FOR SEVERAL MIN ON EDGE OF BED, P.T. AND O.T AND NURSING ATTEMPTED TO STAND PT..UNAABLE TO CLEAR GREATER THAN 2 INCHES AND PT WAS VERY WEAK AND UNSTEADY. HE WAS UNABLE TO SUPPORT HIMSELF WITH R LE AND B UES DUE TO WEAKNESS. SAT ON BED TO PERFORM ROM EXS REQUIRING REST BREAKS FOLLOWING Q 5 REPS. ASSISTED PT WITH BED MOB TO SUPINE POSITION. PERFORMED SLIDING TRANSFER TO NEW BED WHICH ALLOWS FOR UPRIGHT SITTING IF POSITIONED IN CHAIR. MAX ASSIST WITH TRANSFER TO NEW BED. PT DOING WELL SITTING UP. PT MUCH MORE ALERT AND LESS CONFUSED TODAY. BI PAP ON THROUGHOUT ENTIRE TMT SESSION. VISH ZHONG, OTR/L
--- NOTE | 2018-12-28 13:54 | MORECARE ---
CASE MANAGEMENT DISCHARGE SUMMARY PATIENT: RYANN DUVALL UNIT: [id number] ADM DATE: 12/07/18 AGE: 58 : 62 SEX: M ROOM/BED: D.2310 AUTHOR: LEATHA,DOC PHYSICIAN: REFERRING PHYSICIAN: CHASITY ZIMMER MD DATE OF SERVICE: 12/28/18 Discharge Plan Patient Name: RYANN DUVALL Facility: [facility]:[place] : 1960 Planned Disposition: Residential Acute Care Facility Anticipated Discharge Date: Discharge Date: Expected LOS: Initial Reviewer: [email or web address] Initial Review Date: 12/08/2018 Generated: 12/28/18 2:53 pm DCP- Discharge Planning Updated by [email or web address]: Dorcas Maki on 12/08/18 7:[address] Patient Name: RYANN DUVALL Admission Status: ER Accout number: [id number] Admission Date: 12-07-2018 : 1960 Admission Diagnosis:SEPSIS, UNSPECIFIED ORGANISM Attending: CHASITY ZIMMER Current LOS: 1 Anticipated DC Date: Planned Disposition: Home Primary Insurance: [employer] TRUE BLUE PPO Discharge Planning Comments: CM met with patient at bedside after obtaining verbal consent. Patient states he plans on returning home after discharge with his . Patient states he will have family transport him home via private vehicle. Patient denies any discharge needs at this time. Patient may need for wound care or possibly rehab upon discharge. CM will continue to follow and assist as needed for discharge planning / needs. Mechanical Process Engineer: Dorcas Maki DCPIA - Discharge Planning Initial Assessment Updated by [email or web address]: Dorcas Maki on 12/08/18 8:59 pm * Is the patient Alert and Oriented? Yes * How many steps to enter\exit or inside your home? * PCP Tejinder Bernal * Pharmacy [facility] * Preadmission Environment Home with Family * ADLs Independent * Other Equipment walker, cane, CPAP-doesn't use, PD cycler * List name and contact numbers for known caregivers / representatives who currently or will assist patient after discharge: Henri Duvall - - [phone], * Verbal permission to speak to the caregivers and representatives has been obtained from the patient. Yes * Community resources currently utilized None * Please name any agencies selected above. Home PD * Additional services required to return to the preadmission environment? No * Can the patient safely return to the preadmission environment? Yes * Has this patient been hospitalized within the prior 30 days at any hospital? No Last DP export: 12/08/18 7:04 pm Patient Name: RYANN DUVALL Page [id number] at 1354 All edits/amendments must be made on the electronic document DICTATION DATE: 12/28/18 1353 CORE JAVA SOFTWARE ENGINEER: NOEL 12/28/18 1353 RPT#: [id number] DC DATE: STATUS: ADM IN [facility] [address] [place] [address] END OF REPORT
--- NOTE | 2018-12-28 14:17 | NUR ---
DR BELL PAGED GIVEN UDPATE 2 U PRBC ORDERED PT UNABLE TO TOLERATE 6L OXYMIZER USING BIPAP 100% OXYMIZER ONLY AT MEAL BREAKS. T ORDER TO HOLD 2 U PRBC AND WILL REVIEW IN AM.
--- NOTE | 2018-12-28 14:19 | MORECARE ---
CASE MANAGEMENT DISCHARGE SUMMARY PATIENT: RYANN DUVALL UNIT: [id number] ADM DATE: 12/07/18 AGE: 58 : 62 SEX: M ROOM/BED: D.2310 AUTHOR: LEATHA,DOC PHYSICIAN: REFERRING PHYSICIAN: CHASITY ZIMMER MD DATE OF SERVICE: 12/28/18 Discharge Plan Patient Name: RYANN DUVALL Facility: [facility]:[place] : 1960 Planned Disposition: Skilled Nursing Acute Care Facility Anticipated Discharge Date: Discharge Date: Expected LOS: Initial Reviewer: [email or web address] Initial Review Date: 12/08/2018 Generated: 12/28/18 3:18 pm DCP- Discharge Planning Updated by [email or web address]: Dorcas Maki on 12/08/18 7:[address] Patient Name: RYANN DUVALL Admission Status: ER Accout number: [id number] Admission Date: 12-07-2018 : 1960 Admission Diagnosis:SEPSIS, UNSPECIFIED ORGANISM Attending: CHASITY ZIMMER Current LOS: 1 Anticipated DC Date: Planned Disposition: Home Primary Insurance: [employer] TRUE BLUE PPO Discharge Planning Comments: CM met with patient at bedside after obtaining verbal consent. Patient states he plans on returning home after discharge with his . Patient states he will have family transport him home via private vehicle. Patient denies any discharge needs at this time. Patient may need for wound care or possibly rehab upon discharge. CM will continue to follow and assist as needed for discharge planning / needs. Stem Threshing Machine Operator: Dorcas Maki DCPIA - Discharge Planning Initial Assessment Updated by [email or web address]: Dorcas Maki on 12/08/18 8:59 pm * Is the patient Alert and Oriented? Yes * How many steps to enter\exit or inside your home? * PCP Tejinder Bernal * Pharmacy [facility] * Preadmission Environment Home with Family * ADLs Independent * Other Equipment walker, cane, CPAP-doesn't use, PD cycler * List name and contact numbers for known caregivers / representatives who currently or will assist patient after discharge: Henri Duvall - - [phone], * Verbal permission to speak to the caregivers and representatives has been obtained from the patient. Yes * Community resources currently utilized None * Please name any agencies selected above. Home PD * Additional services required to return to the preadmission environment? No * Can the patient safely return to the preadmission environment? Yes * Has this patient been hospitalized within the prior 30 days at any hospital? No External Providers External Provider: OTHER-OTHER Next Contact Date: Service Request Date: Service Type: Resolution: Reviewer: Comments: Last DP export: 12/28/18 12:53 p Patient Name: RYANN DUVALL Page 58631 at 1419 All edits/amendments must be made on the electronic document DICTATION DATE: 12/28/181417 ELECTRONIC SPECIALIST: NOEL 12/28/181417 RPT#: [id number] DC DATE: STATUS: ADM IN [facility] [address] [place] [address] END OF REPORT
--- NOTE | 2018-12-28 15:00 | MORECARE ---
CASE MANAGEMENT DISCHARGE SUMMARY PATIENT: RYANN DUVALL UNIT: [id number] ADM DATE: 12/07/18 AGE: 58 : 62 SEX: M ROOM/BED: D.2310 AUTHOR: LEATHA,DOC PHYSICIAN: REFERRING PHYSICIAN: CHASITY ZIMMER MD DATE OF SERVICE: 12/28/18 Discharge Plan Patient Name: RYANN DUVALL Facility: [facility]:[place] : 1960 Planned Disposition: Penitentiary Acute Care Facility Anticipated Discharge Date: Discharge Date: Expected LOS: Initial Reviewer: [email or web address] Initial Review Date: 12/08/2018 Generated: 12/28/18 4:00 pm Comments DCP- Discharge Planning Updated by [email or web address]: Dorcas Maki on 12/28/18 1:[address] CM notified for LTACH eval. CM spoke with patients spouse gave her a list of LTACH facilities within the [facility]. OTIS form signed for [facility] in [place] [phone] fax [phone]. CM called and spoke with Monalisa Reardon and faxed records requested. CM received call back from Monalisa @ [phone] that insurance approved LTACH. Monalisa is planning on calling spouse to make sure she is on board with transfer to LTACH tomorrow. CM will continue to follow and assist as needed with discharge planning/ needs. DCP- Discharge Planning Updated by [id number]: Dorcas Maki on 12/08/18 7:[address] Patient Name: RYANN DUVALL Admission Status: ER Accout number: [id number] Admission Date: 12-07-2018 : 1960 Admission Diagnosis:SEPSIS, UNSPECIFIED ORGANISM Attending: CHASITY ZIMMER Current LOS: 1 Anticipated DC Date: Planned Disposition: Home Primary Insurance: [employer] TRUE BLUE PPO Discharge Planning Comments: CM met with patient at bedside after obtaining verbal consent. Patient states he plans on returning home after discharge with his . Patient states he will have family transport him home via private vehicle. Patient denies any discharge needs at this time. Patient may need for wound care or possibly rehab upon discharge. CM will continue to follow and assist as needed for discharge planning / needs. Colorer: Dorcas Annr DCPIA - Discharge Planning Initial Assessment Updated by [email or web address]: Dorcas Maki on 12/08/18 8:59 pm * Is the patient Alert and Oriented? Yes * How many steps to enter\exit or inside your home? * PCP Tejinder Bernal * Pharmacy [facility] * Preadmission Environment Home with Family * ADLs Independent * Other Equipment walker, cane, CPAP-doesn't use, PD cycler * List name and contact numbers for known caregivers / representatives who currently or will assist patient after discharge: Henri Duvall - - [phone], * Verbal permission to speak to the caregivers and representatives has been obtained from the patient. Yes * Community resources currently utilized None * Please name any agencies selected above. Home PD * Additional services required to return to the preadmission environment? No * Can the patient safely return to the preadmission environment? Yes * Has this patient been hospitalized within the prior 30 days at any hospital? No Last DP export: 12/28/18 1:18 p Patient Name: RYANN DUVALL Page [phone] at 1500 All edits/amendments must be made on the electronic document DICTATION DATE: 12/28/18 1500 DIVINITY PROFESSOR: NOEL 12/28/18 1500 RPT#: [id number] DC DATE: STATUS: ADM IN [facility] [address] [place] [address] END OF REPORT
--- NOTE | 2018-12-28 15:20 | NUR ---
REASSESSMENT COMPLETE PER FLOW SHEET. VSS. NO NEW CHANGES WILL CONTINUE TO MONTIOR
--- NOTE | 2018-12-28 15:25 | NUR ---
ANTONIO WITH LTACH CALLED GIVEN UDPATE. STATED WOULD BE HERE IN AM
--- NOTE | 2018-12-28 19:00 | NUR ---
PATIENT IN BED IN LOW FOWLERS POSITION. ALERT AND ORIENTED X4. VITAL SIGNS STABLE AND AFEBRILE. RESPIRATIONS EVEN AND UNLABORED. NO VISUAL CUES OF DISTRESS NOTED. DENIES ANY OTHER NEEDS AT THIS TIME. BED LOW, SIDE RAILS UP X2. CALL LIGHT IN REACH. WILL CONTINUE TO MONITOR.
[2018-12-29] VITALS (16 sets, daily range): BP systolic 104–121; BP diastolic 65–78
[2018-12-29 05:14] LABS: BASOPHILS 0.3 % (0-2); EOSINOPHILS 4.8 % (0-7); HEMOGLOBIN 7.9 g/dL (13.5-17.5); IMMATURE GRANULOCYTES 0.7 % (0-5); LYMPHOCYTES 10.9 % (15-50); MCH 27.2 pg (26.0-34.0); MCHC 30.4 g/dL (31.0-37.0); MCV 89.7 fL (80.0-100.0); MEAN PLATELET VOLUME 9.1 fL (7.4-10.4); NEUTROPHILS 72.3 % (40-80); PLATELET COUNT 163 10x3/uL (130-400); RDW 20.8 % (11.5-14.5); WBC 9.8 10x3/uL (4.8-10.8)
[2018-12-29 05:42] LABS: ALBUMIN 2.6 g/dL (3.4-5.0); BILIRUBIN - TOTAL 0.73 mg/dL (0.2-1.3); CARBON DIOXIDE 27.5 mmol/L (21.0-32.0); CREATININE - SERUM 7.5 mg/dL (0.6-1.3); PHOSPHOROUS 3.9 mg/dL (2.5-4.9); POTASSIUM - SERUM 3.5 mmol/L (3.5-5.1); PROTEIN - SERUM 5.8 g/dL (6.4-8.2)
[2018-12-29 05:44] LABS: CALCIUM 6.8 mg/dL (8.5-10.1)
--- NOTE | 2018-12-29 07:00 | NUR ---
REPORT RECEIVED. ASSESSMENT COMPLETE PER FLOW SHEET. VSS. DENIES NEEDS. RESTING COMFORTABLY WILL CONTINUE TO MONITOR
--- NOTE | 2018-12-29 08:15 | NUR ---
MADAI AT BEDSIDE. GIVEN UPDATE.
[2018-12-29] MEDS ORDERED: IPRAT-ALBUT 0.5-3 ML IH (08:53)
[2018-12-29] MEDS ORDERED: Lovenox INJ SC (08:54)
[2018-12-29] MEDS ORDERED: HEPARIN SO1000 UNIT/ INJ (08:54)
[2018-12-29] MEDS ORDERED: QUESTRAN PACKET PO (08:54)
[2018-12-29] MEDS ORDERED: PROCRIT/EP20000 UNIT SC (08:54)
[2018-12-29] MEDS ORDERED: BETAPACE 80 MG80 MG PO (08:55)
[2018-12-29] MEDS ORDERED: ACETAMINOPHEN325 MG PO (08:55)
[2018-12-29] MEDS ORDERED: FLORAJEN3 CAPS460 MG PO (08:56)
[2018-12-29] MEDS ORDERED: TUMS PO (08:56)
[2018-12-29] MEDS ORDERED: RENAGEL800 MG PO (08:56)
[2018-12-29] MEDS ORDERED: ZOFRAN INJ IV (08:56)
[2018-12-29] MEDS ORDERED: CALMOSEPTINE OI71 GM TOPICAL (08:58)
[2018-12-29] MEDS ORDERED: Bactroban ointment TOPICAL (08:58)
[2018-12-29] MEDS ORDERED: ROCALTROL0.25 MCG PO (08:58)
--- NOTE | 2018-12-29 09:20 | NUR ---
ATE 50% BREAKFAST.
--- NOTE | 2018-12-29 09:50 | NUR ---
ROSANA WITH [facility] AT BEDSIDE. GIVEN UDPATE. BKA AND LEFT LEG DRSG CHANGE ADM. COCCYX/BUTTOCKS DRSG CHANGE ADM. COMPLETE BB LINEN CHANGE ADM. LARGE BM NOTED. NEEDS MET.
--- NOTE | 2018-12-29 10:42 | NUR ---
DR BELL PAGED FOR DOC TO DOC
--- NOTE | 2018-12-29 10:50 | NUR ---
DR BELL PAGED GIVEN UDPATE. STATED WOULD CALL DR BRIGGS WITH DOC TO DOC UPDATE.
--- NOTE | 2018-12-29 12:27 | NUR ---
REPORT GIVEN TO [facility] AT [facility].
--- NOTE | 2018-12-29 14:30 | NUR ---
PT PLACED ON BIPAP PER REQUEST. DENIES FURTHER NEEDS. VSS. O2 SAT 98%
--- NOTE | 2018-12-29 15:51 | NUR ---
PT LEFT VIA EMS. MADAI AT BEDSIDE. GIVEN UPDATE. LEFT WITH SISTER. NEEDS MET.
--- NOTE | 2018-12-29 15:51 | NUR ---
EDUARD AT [facility] CALLED GIVEN UPDATE
--- NOTE | 2018-12-29 16:03 | MORECARE ---
CASE MANAGEMENT DISCHARGE SUMMARY PATIENT: RYANN DUVALL UNIT: [id number] ADM DATE: 12/07/18 AGE: 58 : 62 SEX: M ROOM/BED: D.2310 AUTHOR: LEATHA,DOC PHYSICIAN: REFERRING PHYSICIAN: CHASITY ZIMMER MD DATE OF SERVICE: 12/29/18 Discharge Plan Patient Name: RYANN DUVALL Facility: [facility]:[place] : 1960 Planned Disposition: Assisted Acute Care Facility Anticipated Discharge Date: Discharge Date: 12/29/2018 Expected LOS: Initial Reviewer: [email or web address] Initial Review Date: 12/08/2018 Generated: 12/29/18 5:03 pm Comments DCP- Discharge Planning Updated by [email or web address]: Dorcas Maki on 12/29/18 3:[address] Patient Name: RYANN DUVALL Encounter No: [id number] : 1960 Primary Insurance: [employer] TRUE BLUE PPO Anticipated DC Date: Planned Disposition: Assisted Acute Care Facility External Planned Provider: : DCP follow-up note: Patient and family in agreement with discharge plan. No changes to plan. Case management will follow and assist as needed. Dorcas Maki DCP- Discharge Planning Updated by [id number]: Dorcas Maki on 12/29/18 3:[address] Patient Name: RYANN DUVALL Encounter No: [id number] : 1960 Primary Insurance: [employer] TRUE BLUE PPO Anticipated DC Date: Planned Disposition: Assisted Acute Care Facility External Planned Provider: : DCP follow-up note: Patient and family in agreement with discharge plan. No changes to plan. Case management will follow and assist as needed. Dorcas Maki DCP- Discharge Planning Updated by [email or web address]: Dorcas Maki on 12/28/18 1:[address] CM notified for LTACH eval. CM spoke with patients spouse gave her a list of LTACH facilities within the state. OTIS form signed for [facility] in [place] [phone] fax [phone]. CM called and spoke with Monalisa Reardon and faxed records requested. HARLEEN received call back from Monalisa @ [phone] that insurance approved LTACH. Monalisa is planning on calling spouse to make sure she is on board with transfer to LTACH tomorrow. CM will continue to follow and assist as needed with discharge planning/ needs. DCP- Discharge Planning Updated by [email or web address]: Dorcas Maki on 12/08/18 7:[address] Patient Name: RYANN DUVALL Admission Status: ER Accout number: [id number] Admission Date: 12-07-2018 : 1960 Admission Diagnosis:SEPSIS, UNSPECIFIED ORGANISM Attending: CHASITY ZIMMER Current LOS: 1 Anticipated DC Date: Planned Disposition: Home Primary Insurance: [employer] TRUE BLUE PPO Discharge Planning Comments: CM met with patient at bedside after obtaining verbal consent. Patient states he plans on returning home after discharge with his . Patient states he will have family transport him home via private vehicle. Patient denies any discharge needs at this time. Patient may need HH for wound care or possibly rehab upon discharge. CM will continue to follow and assist as needed for discharge planning / needs. Motor Home Electrical Foreman: Dorcas Maki DCPIA - Discharge Planning Initial Assessment Updated by [email or web address]: Dorcas Maki on 12/08/18 8:59 pm * Is the patient Alert and Oriented? Yes * How many steps to enter\exit or inside your home? * PCP Tejinder Bernal * Pharmacy [facility] * Preadmission Environment Home with Family * ADLs Independent * Other Equipment walker, cane, CPAP-doesn't use, PD cycler * List name and contact numbers for known caregivers / representatives who currently or will assist patient after discharge: Henri Duvall - - [phone], * Verbal permission to speak to the caregivers and representatives has been obtained from the patient. Yes * Community resources currently utilized None * Please name any agencies selected above. Home PD * Additional services required to return to the preadmission environment? No * Can the patient safely return to the preadmission environment? Yes * Has this patient been hospitalized within the prior 30 days at any hospital? No Last DP export: 12/28/18 2:00 p Patient Name: RYANN DUVALL Page 20771 at 1603 All edits/amendments must be made on the electronic document DICTATION DATE: 12/29/181602 STRIKE PLANNING APPLICATIONS: NOEL 12/29/18 160 RPT#: [id number] DC DATE:12/29/18 STATUS: DIS IN [facility] [address] [place] [address] END OF REPORT
== END 2018-12-29 15:52 | DRG 853 ==
LOC: D.ER 22:05 → EDBD 22:05 → D.ICU 22:49 → D.EDHOLD 22:49 → D.M2 22:49 → D.ICU 22:49 → D.M2 12-20 16:51 → D.ICU 12-21 07:57
PROVIDERS: Family Medicine; Internal Medicine Nephrology; Internal Medicine Pulmonary Disease; Orthopaedic Surgery; Radiology Vascular & Interventional Radiology; Student in an Organized Health Care Education/Training Program; ADMIT Internal Medicine; ATTEND Internal Medicine
PROC: 047M3Z1 Dilation of Right Popliteal Artery using Drug-Coated Balloon, Percutaneous Approach (ICD-10-PCS; 2018-12-12)
PROC: 04CM3ZZ Extirpation of Matter from Right Popliteal Artery, Percutaneous Approach (ICD-10-PCS; 2018-12-12)
PROC: 0BH17EZ Insertion of Endotracheal Airway into Trachea, Via Natural or Artificial Opening (ICD-10-PCS; 2018-12-12)
PROC: 05H533Z Insertion of Infusion Device into Right Subclavian Vein, Percutaneous Approach (ICD-10-PCS; 2018-12-12)
PROC: 5A1955Z Respiratory Ventilation, Greater than 96 Consecutive Hours (ICD-10-PCS; 2018-12-12)
PROC: B41C1ZZ Fluoroscopy of Pelvic Arteries using Low Osmolar Contrast (ICD-10-PCS; 2018-12-12)
PROC: B41F1ZZ Fluoroscopy of Right Lower Extremity Arteries using Low Osmolar Contrast (ICD-10-PCS; 2018-12-12)
PROC: 0Y6H0Z1 Detachment at Right Lower Leg, High, Open Approach (ICD-10-PCS; principal; 2018-12-14)
PROC: 0HDLXZZ Extraction of Left Lower Leg Skin, External Approach (ICD-10-PCS; 2018-12-14)
DX: A41.9 Sepsis, unspecified organism (principal); N18.6 End stage renal disease; R65.21 Severe sepsis with septic shock; A48.0 Gas gangrene; E43 Unspecified severe protein-calorie malnutrition; J96.01 Acute respiratory failure with hypoxia; J96.02 Acute respiratory failure with hypercapnia; I50.23 Acute on chronic systolic (congestive) heart failure; N39.0 Urinary tract infection, site not specified; L03.115 Cellulitis of right lower limb; L03.116 Cellulitis of left lower limb; E87.2 Acidosis; J98.11 Atelectasis; I70.261 Atherosclerosis of native arteries of extremities with gangrene, right leg; E11.52 Type 2 diabetes mellitus with diabetic peripheral angiopathy with gangrene; I13.2 Hypertensive heart and chronic kidney disease with heart failure and with stage 5 chronic kidney disease, or end stage renal disease; E11.22 Type 2 diabetes mellitus with diabetic chronic kidney disease; E11.621 Type 2 diabetes mellitus with foot ulcer; E11.622 Type 2 diabetes mellitus with other skin ulcer; L98.499 Non-pressure chronic ulcer of skin of other sites with unspecified severity; E66.01 Morbid (severe) obesity due to excess calories; R68.0 Hypothermia, not associated with low environmental temperature; E83.51 Hypocalcemia; E03.9 Hypothyroidism, unspecified; I48.91 Unspecified atrial fibrillation; G47.33 Obstructive sleep apnea (adult) (pediatric); D50.9 Iron deficiency anemia, unspecified; E11.610 Type 2 diabetes mellitus with diabetic neuropathic arthropathy; E11.69 Type 2 diabetes mellitus with other specified complication; D63.1 Anemia in chronic kidney disease; L89.619 Pressure ulcer of right heel, unspecified stage

== ENCOUNTER 2020-04-04 08:03 | Day surgery (SDC) | payer MEDICAID ==
[~2020-04-04] VITALS: Ht 195.6 cm; Wt 131.5 kg
[~2020-04-04 08:03] MED LIST changes: +ACETAMINOPHEN325 MG PO; +BETAPACE 80 MG80 MG PO; +BUPROPION HCL75 MG; +Bactroban ointment TOPICAL; +CALMOSEPTINE OI71 GM TOPICAL; +FLORAJEN3 CAPS460 MG PO; +HEPARIN SO1000 UNIT/ INJ; +IPRAT-ALBUT 0.5-3 ML IH; +Lovenox INJ SC; +NOVOLOG100 UNIT/1 SC; +PROCRIT/EP20000 UNIT SC; +QUESTRAN PACKET PO; +RENAGEL800 MG PO; +ROCALTROL0.25 MCG PO; +SYNTHROID200 MC1 PO; +TIAZAC/CARDIZE240 M1 PO; +TOPROL XL100 MG PO; +TUMS PO; +ZANTAC300 MG PO; +ZOFRAN INJ IV
[2020-04-04 08:37] LABS: LYMPHOCYTES 27.1 % (15-50); MCH 30.3 pg (26.0-34.0); MEAN PLATELET VOLUME 9.8 fL (7.4-10.4); NEUTROPHILS 58.8 % (40-80); PLATELET COUNT 196 10x3/uL (130-400); RBC 3.96 10x6/uL (4.20-6.10); RDW 15.5 % (11.5-14.5); WBC 6.6 10x3/uL (4.8-10.8)
[2020-04-04 08:38] LABS: ANION GAP 11.1 mmol/L (8-16); CALCIUM 8.4 mg/dL (8.5-10.1); CARBON DIOXIDE 31.2 mmol/L (21.0-32.0); POTASSIUM - SERUM 4.3 mmol/L (3.5-5.1)
[2020-04-04 08:42] LABS: INR 1.11 (0.85-1.17); PROTIME 14.2 SECONDS (11.6-15.0)
[2020-04-04 10:36] VITALS: BMI 34.4
[2020-04-04 14:18] VITALS: Ht 195.6 cm; Wt 131.5 kg
--- NOTE | 2020-04-04 16:00 | NUR ---
1506 IV DC'D. CATHETER TIP INTACT. NO BLEEDING AT SITE. BANDAID APPLIED. 1530 PT READY FOR DISCHARGE. PT HAS ICE PACK FOR ABDOMINAL COMFORT. DENIES PAIN AND READY TO GO HOME.
--- NOTE | 2020-04-08 16:13 | OP ---
PATIENT NAME: RYANN DUVALL MEDICAL RECORD: [id number] :[birth year] [facility] ADMISSION DATE: SURGEON: JEFFERSON BELTRÁN MD DATE OF OPERATION: 04/04/2020 REFERRED BY: Adiel Devlin MD PREOPERATIVE DIAGNOSES: End-stage renal disease and dependence on dialysis and nonfunctioning peritoneal dialysis catheter. POSTOPERATIVE DIAGNOSES: End-stage renal disease and dependence on dialysis and nonfunctioning peritoneal dialysis catheter. OPERATION PERFORMED: Removal of peritoneal dialysis catheter. ANESTHESIA: General with LMA per BATTERY FILLER. PREOPERATIVE NOTE: Mr. Duvall is a 59-year-old white male patient with diabetes and end-stage renal disease and severe peripheral atherosclerotic disease status post bilateral AK amputations. He is presently dialyzing with a left radiocephalic AV fistula. He has a peritoneal dialysis catheter, which exits in the right lower quadrant, which is obstructed or not functional and he has been referred to me by Dr. Devlin for its removal. DESCRIPTION OF PROCEDURE: Under general anesthesia in supine position, the patient was prepped and draped in sterile manner. The catheter was placed on traction, which demonstrated the superficial Dacron felt cuff immediately beneath the skin. The skin excision site was excised along with the underlying tissues adherent to the Dacron cuff. This required a small incision about 2 cm in length. Sharp and electrocautery dissection was then continued down to the superficial rectus sheath where the deeper cuff was then dissected from the surrounding structures and removed from its location underneath the rectus sheath. The entire catheter was then removed intact. The fascia at the perforation site was closed with a single [id number] 0 Vicryl suture. The wound was irrigated with Ancef and gentamicin solution and it was infiltrated with 0.25% Marcaine without epinephrine and closed with interrupted inverted 3-0 Vicryl and kayla. It was dressed with Bactroban ointment and an adhesive bordered gauze dressing. The patient was at that time, then awakened and taken to the recovery room. He will be allowed to go home today and follow up at the dialysis center in [place]. I will see him back here in [place] if needed, but I am not making him a routine appointment. We will ask the dialysis unit to see his kayla are removed next week and that his dressing at least is changed once the wound examined once I see on Tuesday of next week. No new prescriptions are given today. He is to continue his same diabetic renal diet and medications and activities and dialysis schedule. He will be a p.r.n. return to see me. Sponges, instruments and needles were accounted for. No drain was used and no surgical specimen was submitted for histopathology. No cultures were collected. TRANSINT:[id number] Voice Confirmation ID: [id number] DOCUMENT ID: [id number] cc: [facility]. OPERATIVE REPORT [id number] RYANN DUVALL JAMES MD at 1613 CC: ADIEL DEVLIN [phone] DICTATION DATE: 04/04/20 1407 MEDICAL ASSEMBLER: 04/04/20 6682 [facility] [place] 04/04/20 [facility] [address] [place] [address]
== END 2020-04-04 15:30 | disposition home or self-care (01) ==
LOC: D.OPS 08:03
PROVIDERS: ATTEND Internal Medicine Nephrology
DX: E11.22 Type 2 diabetes mellitus with diabetic chronic kidney disease (principal); Z99.2 Dependence on renal dialysis; E07.9 Disorder of thyroid, unspecified; D64.9 Anemia, unspecified; T85.611A Breakdown (mechanical) of intraperitoneal dialysis catheter, initial encounter